=== PATIENT | female | born 1970 | race Caucasian/White ===

== ENCOUNTER 2019-06-11 10:15 | Outpatient (CLI) | payer OTHER, SELFPAY ==
[2019-06-11 10:50] LABS: Blood Urea Nitrogen 10 mg/dL (7-17); Carbon Dioxide 26 mmol/L (22-30); Chloride 106 mmol/L (98-107); Estimated Glomerular Filt Rate > 60; Glucose 96 mg/dL (65-105); Potassium 3.9 mmol/L (3.4-5.0); Sodium 138 mmol/L (137-145)
[2019-06-13 04:15] LABS: Ionized Calcium 5.1 mg/dL (4.8-5.6)
== END 2019-06-11 10:16 | disposition home or self-care (01) ==
PROVIDERS: PCP Internal Medicine; Visit Provider Internal Medicine
DX: R20.0 Anesthesia of skin (principal)
CPT/HCPCS: 36415; 80048; 82330

== ENCOUNTER 2019-06-22 11:47 | Outpatient (NON) | payer OTHER, SELFPAY ==
[2019-06-23 13:29] LABS: SARS-CoV-2 RNA PCR Negative
== END 2019-06-22 11:48 ==
PROVIDERS: PCP Internal Medicine; Visit Provider Internal Medicine
DX: R50.9 Fever, unspecified (principal); R68.89 Other general symptoms and signs; Z20.828 Contact with and (suspected) exposure to other viral communicable diseases
CPT/HCPCS: 87635; U0003

== ENCOUNTER 2019-06-25 11:19 | Outpatient (CLI) | payer OTHER, SELFPAY ==
--- NOTE | ~2019-06-25 | XR_ITS ---
XR chest 2V DATE: 06/25/2019 11:42 INDICATION: PA and lateral views TECHNIQUE: 05/25/2017 PA and lateral COMPARISON: 05/25/2017 PA and lateral views FINDINGS: Normal heart size. There is left upper lobe infiltrate involving primarily the anterior se gment. The lungs are otherwise clear. No pleural effusion or pulmonary vascular congestion or pneumothorax. Aortic arch calcification.. IMPRESSION: Anterior segment left upper lobe infiltrate Reviewed, dictated and finalized at location A.
== END 2019-06-25 11:20 | disposition home or self-care (01) ==
PROVIDERS: PCP Internal Medicine; Visit Provider Internal Medicine
DX: R07.9 Chest pain, unspecified (principal); R91.8 Other nonspecific abnormal finding of lung field
CPT/HCPCS: 71046

== ENCOUNTER 2019-07-03 11:37 | Outpatient (CLI) | payer OTHER, SELFPAY ==
--- NOTE | ~2019-07-03 | XR_ITS ---
XR chest 2V 07/03/2019 11:59 Indication: Recheck pneumonia. Procedure: 2 view chest Comparison: Comparison to multiple prior studies sequentially, with oldest reviewed study dated 05/25. Findings: There has been progression of left upper lobe pneumonia. No pleural effusion. Heart size no rmal. Right lung clear. No pneumothorax. No acute osseous abnormality. Impression: 1: Progression of left upper lobe pneumonia. Reviewed, dictated and finalized at location A. Impression: 1: Progression of left upper lobe pneumonia.
== END 2019-07-03 11:38 | disposition home or self-care (01) ==
PROVIDERS: PCP Internal Medicine; Visit Provider Internal Medicine
DX: J18.9 Pneumonia, unspecified organism (principal)
CPT/HCPCS: 71046

== ENCOUNTER 2019-07-13 09:52 | Outpatient (CLI) | payer OTHER, SELFPAY ==
--- NOTE | ~2019-07-13 | XR_ITS ---
XR chest 2V DATE: 07/13/2019 10:09 INDICATION: Chest pain under left breast TECHNIQUE: PA and lateral views COMPARISON: 07/03/2019 PA and lateral chest 06/25/2019 PA and lateral chest FINDINGS: There is increased left upper lobe anterior segment consolidation. This raises concern for possible left upper lobe malignancy with postobstructive infiltrate/consolidation. Consider CT thorax with intravenous contrast material for further evaluation. The remaining lung ram are clear. Normal heart size. Aortic arch calcification. No pleural effusion or pulmonary vascular congestion or pneumothorax. Included skeletal structures are unremarkable. Surgical clips overlie the lower cervical area. IMPRESSION: Persistent left upper lobe infiltrate/consolidation, increasing since 06/25/2019, raising concern for possible left upper lobe malignancy. Consider CT thorax with IV contrast material. Dr. Rivas telephoned the report and suggestion for CT thorax with IV contrast material to Dr. Cox on 07/13/2019 at 1032 hours. Reviewed, dictated and finalized at location A. IMPRESSION: Persistent left upper lobe infiltrate/consolidation, increasing sin ce 06/25/2019, raising concern for possible left upper lobe malignancy. Consider CT thorax with IV contrast material. Dr. Rivas telephoned the report and suggestion for CT thorax with IV contrast ma terial to Dr. Cox on 07/13/2019 at 1032 hours.
== END 2019-07-13 09:53 | disposition home or self-care (01) ==
PROVIDERS: PCP Internal Medicine; Visit Provider Internal Medicine
DX: J18.9 Pneumonia, unspecified organism (principal); R91.8 Other nonspecific abnormal finding of lung field
CPT/HCPCS: 71046

== ENCOUNTER 2019-07-21 08:10 | Outpatient (CLI) | payer OTHER, SELFPAY ==
--- NOTE | ~2019-07-21 | CT_ITS ---
EXAMINATION:CT chest wo con DATE: 07/21/2019 09:18 INDICATION: Pneumonia, unspecified. TECHNIQUE: Computed tomography (CT) of the chest was performed without intravenous contrast. Automate d exposure control and iterative reconstruction technique were employed. The dose-length product (DLP ) was 413.93 mGy-cm. COMPARISON: Chest 2 views 07/13/2019, 07/03/2019, 06/25/2019 FINDINGS: There is mild emphysema. There are airspace opacities with air bronchograms involving anter ior and apicoposterior segments of left upper lobe. There is an 11 mm nodule in superior lingula. No pleural effusion. There are changes of thyroidectomy. There is mediastinal and left hilar lymphadenop athy. For example, a prevascular node measures 14 x 24 mm. There is severe cervical spondylosis and m ild thoracic spondylosis. The heart size is normal. There are coronary artery calcifications. There i s a small pericardial effusion. There is a small sliding hiatal hernia. The adrenal glands are normal . IMPRESSION: 1. Disease in left lung upper lobe, at least predominantly pneumonia. Consider bronchoscopy or follow -up radiographs to exclude malignancy. 2. Mild mediastinal and left hilar lymphadenopathy. 3. Mild emphysema. 4. Small pericardial effusion. Reviewed, dictated and finalized at location E. IMPRESSION: 1. Disease in left lung upper lobe, at least predominantly pneumonia. Consider bronchoscopy or follow-up radiographs to exclude malignancy. 2. Mild mediastinal and left hilar lymphadenopathy. 3. Mild emphysema. 4. Small pericardial effusion.
== END 2019-07-21 08:11 | disposition home or self-care (01) ==
PROVIDERS: PCP Internal Medicine; Visit Provider Internal Medicine
DX: J18.9 Pneumonia, unspecified organism (principal); R59.0 Localized enlarged lymph nodes; J43.9 Emphysema, unspecified; I31.3 Pericardial effusion (noninflammatory)
CPT/HCPCS: 71250

== ENCOUNTER 2019-08-06 00:26 | Outpatient (CLI) | payer OTHER, SELFPAY ==
--- NOTE | 2019-08-06 10:00 | ECG_ITS ---
Measurements Intervals [place] Rate: 70 P: 46 MI: 183 QRS: 35 QRSD: 98 T: 69 QT: 381 QTc: 413 Interpretive Statements SINUS RHYTHM BORDERLINE R WAVE PROGRESSION, ANTERIOR LEADS BASELINE ARTIFACT- I, II, III, AVR, AVL, AVF, V1-V6 BORDERLINE ECG Electronically Signed On 08-06-2019 10:44:56 CDT by Lazaro BOYD
[2019-08-06 16:41] LABS: SARS-CoV-2 RNA PCR Negative
== END 2019-08-06 00:27 | disposition home or self-care (01) ==
LOC: ANHCOVIDDT 00:26
PROVIDERS: PCP Internal Medicine; Visit Provider Internal Medicine Critical Care Medicine
DX: Z01.812 Encounter for preprocedural laboratory examination (principal); Z20.828 Contact with and (suspected) exposure to other viral communicable diseases; R94.31 Abnormal electrocardiogram [ECG] [EKG]
CPT/HCPCS: 87635; 93005; C9803; U0003

== ENCOUNTER 2019-08-08 02:01 | Day surgery (SDC) | payer OTHER, SELFPAY ==
[2019-08-02 10:04] VITALS: BMI 36.7
[2019-08-08 11:53] VITALS: BMI 36.3
[2019-08-08] MEDS: LACTATED RINGERS 1,000 ML 150 ML IV CONT (12:21)
--- NOTE | 2019-08-08 12:32 | WPDANESEPPF ---
Anes - Initial Pre Proc Eval Procedure: Operation Date: 08/08/19 13:00 Proposed Procedures p Bronchoscopy - Naida Garza MD Date/Time: 08/08/19 12:32 Surgeon: Naida Garza MD Pre Op Diagnosis: Pneumonia Patient Data Age: 49 Gender: F Height: 5 ft 3 in Weight: 93 kg Allergies Allergy/AdvReac Type Severity Reaction Status Date / Time acetaminophen [From Percocet] AdvReac Intermediate feels like Verified 08/08/19 11:49 hair crawling oxycodone [From Percocet] AdvReac Intermediate feels like Verified 08/08/19 11:49 hair crawling Home Medications Medication Instructions Recorded Confirmed Type levothyroxine 150 mcg tablet 150 mcg PO DAILY 01/16/19 08/08/19 History acetaminophen 500 mg tablet 500 mg PO Q4-6H PRN tablet 01/25/19 08/08/19 History irbesartan 300 mg tablet See Rx Instructions PO BID #30 05/10/19 08/02/19 Rx tablet metoprolol tartrate 25 mg tablet 25 mg PO BID #90 tablet 05/29/19 08/08/19 Rx fenofibrate 160 mg PO HS 08/02/19 08/02/19 History Patient hx anesthesia problems: none Family hx anesthesia problems: none PMFSH Past Medical History Medical History (Updated 08/08/19 @ 12:27 by Chacho Read MD) Atrial fibrillation NSR since thyroidectomy performed Back problem Fatigue Headaches due to old head injury Hyperlipidemia Hypertension Obstructive sleep apnea Surgical History Surgical History (Updated 01/16/19 @ 13:10 by Stacy Walters, RT(R)) History of carpal tunnel release History of dilatation and curettage History of thyroidectomy History of tubal ligation Hx of tonsillectomy Family History Family History (Updated 07/15/17 @ 13:56 by DOCTOR UNKNOWN) Mother Hypertension Father Patient's father is in good health Sibling Patient's sister is in good health Patient's brother is in good health Other Depression Family history of Alzheimer's disease Family history of obesity Social History Social History Smoking status: Current every day smoker Alcohol intake: never Anes - Eval Final PreProcedure Day of Procedure 08/08/19 12:32 Patient weight: obese Heart: regular rate and rhythm Lungs: clear to auscultation Airway: Mallampati scale class III Neurological: alert and oriented Last oral intake: >/= 8 hours ASA classification: III Emergent: no Anesthetic plan: proceed Anesthesia type and monitoring: general LMA and standard monitoring Informed Consent: The patient's anesthetic plan and its attendant risks and benefits were discussed with the patient/family/POA. Questions were solicited and answers provided to the satisfaction of the patient/family/POA.
[2019-08-08 13:19] VITALS: BP 109/69; PULSE 71; RESP 24; TEMP 36.2; O2SAT 98
--- NOTE | 2019-08-08 13:23 | SUR.OPER ---
LEFT UPPER LOBE BRONCHIAL WASHINGS: 120ML WITH 25ML RETURN, 75ML POST BIOPSY WITH 2ML LIDOCAINE WITH EPINEPHRINE AND 23ML RETURN, 90ML WITH 29ML RETURN
[2019-08-08 13:29] VITALS: BP 86/53; PULSE 72; RESP 24; O2SAT 98
[2019-08-08] MEDS: LIDO 1%/EPINEPHRINE/PF 1:200,000 30 ML VIAL XX (13:29)
[2019-08-08 13:39] VITALS: BP 138/59; PULSE 72; RESP 24; O2SAT 98
--- NOTE | 2019-08-08 13:45 | SUR.PHASEII ---
1319 pt recieved into recovery with a simple mask at 10l o2, coughing on arrival , lungs sounds audible throughout
[2019-08-08 13:59] VITALS: BP 173/74; PULSE 68; RESP 24; O2SAT 98
[2019-08-08 14:09] VITALS: BP 161/73; PULSE 68; RESP 24; O2SAT 98
--- NOTE | 2019-08-08 14:19 | SUR.PHASEII ---
1319 pt recieved to recovery via stretcher on 10 l simple mask. lung sounds are audible with decreased sounds on left and few crackles audible. pt is coughing without expectoration of sputum. 1400 pt weaned on o2 to nc. pt is complaining of discomfort laying on stretcher, offered to get her up to recliner, pt tolerated getting up to recliner, feels much better, easier to breath and cough. 1410 dr. samson in to see patient and talked with spouse over speaker phone.
[2019-08-08 14:23] LABS: Source Bronchial Fluid Bronchial Lavage
[2019-08-08 14:24] LABS: Appearance Bronchial Fluid Cloudy; Color Bronchial Fluid Red
[2019-08-08 14:25] LABS: Lymphocytes Bronchial Fluid 1 %; Macrophages Bronchial Fluid 35; Monocytes Bronchial Fluid 8 %; Neutrophils Bronchial Fluid 4 %; Other Cells Bronchial Fluid 52 %
== END 2019-08-08 14:24 | disposition home or self-care (01) ==
PROVIDERS: PCP Internal Medicine; Visit Provider Internal Medicine Critical Care Medicine
PROC: 0BJ08ZZ Inspection of Tracheobronchial Tree, Via Natural or Artificial Opening Endoscopic (ICD-10-PCS; CPT 31622; principal; 2019-08-08 13:00)
DX: J18.9 Pneumonia, unspecified organism (principal); R06.02 Shortness of breath; I10 Essential (primary) hypertension; E78.5 Hyperlipidemia, unspecified; G47.33 Obstructive sleep apnea (adult) (pediatric); E89.0 Postprocedural hypothyroidism; E66.9 Obesity, unspecified; Z68.36 Body mass index [BMI] 36.0-36.9, adult; F17.210 Nicotine dependence, cigarettes, uncomplicated
CPT/HCPCS: 31625; 85999; 87015; 87102; 87116; 87206; 87252; 88160; 88305; J0330; J2370; J2704; J7120

== ENCOUNTER 2019-08-27 09:52 | Outpatient (CLI) | payer OTHER, SELFPAY ==
--- NOTE | ~2019-08-27 | XR_ITS ---
EXAMINATION: XR chest 2V EXAM DATE: 08/27/2019 10:10 INDICATION: Pneumonia. TECHNIQUE: Frontal and lateral projections of the chest obtained and reviewed. Comparison is made to prior examination from 07/13/2019, 07/03/2019, 06/25/2019. Correlation was made with chest CT 07/21/2019. FINDINGS: There is persistent right upper lobe anterior subsegmental airspace disease, similar appea erika as on 06/25/2019. This was larger on 07/02 and 07/12, has improved compared to the most recent exam last month. Differential diagnosis includes persistent infection, post infectious atelectasis, posto bstructive atelectasis from underlying cancer, cryptogenic organizing pneumonia. Given persistence, p atient should be evaluated for possibility of underlying cancer. Consider pulmonary consult for furth er evaluation. The lungs are otherwise clear. There are no pleural effusions. The cardiomediastinal silhouette is within normal limits. There is no pneumothorax suspected. The bones and soft tissues are unremarkab le. IMPRESSION: Left upper lobe anterior subsegmental airspace disease, similar sized to presenting exam in June but improved compared to July. Given chronicity, should consider possibility of underlying ca ncer; recommend pulmonary consult for further workup. Reviewed, dictated and finalized at location B. IMPRESSION: Left upper lobe anterior subsegmental airspace disease, similar siz ed to presenting exam in June but improved compared to July. Given chronicity, should consider possibility of underlying cancer; recommend pulmonary consult f or further workup.
== END 2019-08-27 09:53 | disposition home or self-care (01) ==
LOC: ANHIMG 09:53
PROVIDERS: PCP Internal Medicine; Visit Provider Internal Medicine
DX: J18.9 Pneumonia, unspecified organism (principal)
CPT/HCPCS: 71046

== ENCOUNTER 2019-09-04 09:41 | Outpatient (CLI) | payer OTHER, SELFPAY ==
--- NOTE | ~2019-09-04 | PE_ITS ---
EXAMINATION: PET skull to mid thigh DATE: 09/04/2019 11:58 INDICATION: Analyzed enlarged lymph nodes. Thyroid cancer. TECHNIQUE: Blood glucose level was 108 mg/dL. 7.635 mCi of 18-fluorodeoxyglucose (18-FDG) was adminis tered i.v. Low dose computed tomography (CT) images were acquired from the base of the brain to the p roximal thighs for attenuation correction and anatomic localization. Positron emission tomography (PE T) images were acquired in the same distribution beginning 63 minutes after injection. Images includi ng fused PET/CT images were reconstructed in axial, coronal, and sagittal planes. Automated exposure control technique was employed. The dose-length product was 1096.37mGy-cm. COMPARISON: None FINDINGS: Head/neck: There is symmetric increased activity in the oral cavity, palatine tonsils, parotid glands, submandi bular glands, laryngeal muscles and ocular muscles without CT correlate, likely physiologic. Thyroid is absent with a few surgical clips at the thyroid fossa consistent with prior thyroidectomy. No path ologically enlarged cervical lymphadenopathy or suspicious foci of increased FDG uptake in the visual ized head or neck. Chest: Mild emphysema at the right apex. There is increased FDG uptake associated with a region of consolida tion with air bronchograms in the anterior segment of the left upper lobe. The region of consolidatio n is significantly decreased in size consistent with resolving pneumonia. Respiratory motion but no o ther airspace disease in the remainder of the lungs. No pleural effusion. Borderline heart size. Smal l pericardial effusion. Interval decrease in size of a few mildly prominent prevascular lymph nodes t he largest now measuring 8-9 mm in maximal short axis diameter was previously this measured 12 mm in short axis diameter. No associated increased FDG uptake. No other pathologically enlarged thoracic ly mphadenopathy. Abdomen/pelvis/proximal thighs: Physiologic renal accumulation and excretion of FDG activity in the kidneys, bladder and along portio ns of ureters. Small calcifications at the bilateral renal stefania which could represent either atherosc lerotic calcific a nonobstructing renal calculi. Normal degree and heterogenous pattern of increased uptake throughout the liver without radiologic correlate or dominant FDG avid lesion. The gallbladder , pancreas, spleen and bilateral adrenal glands are normal. There is mild colonic diverticulosis with a sigmoid predominance. There is no adjacent inflammatory change to suggest diverticulitis. Mild up take scattered throughout the bowels without radiologic correlate, also likely physiologic. Normal ap pendix. No other abnormal foci of increased FDG uptake or pathologically enlarged lymphadenopathy in the abdomen, pelvis or proximal thighs. Musculoskeletal: Moderate disc height loss at 67 and L4-L5. Otherwise mild spondylosis. Mild posterior vertebral body height loss at L5. No suspicious lytic, blastic or FDG avid bone lesions. IMPRESSION: 1. Significant decrease in size of a region of consolidation with increased FDG uptake in the anterio r segment of the left upper lobe most likely resolving either infectious or inflammatory process. Rec ommend continued follow-up chest CT in 3 months. 2. Interval decrease in size of a few mildly prominent and likely reactive prevascular lymph nodes wh ich are without increased FDG uptake. 3. No pathologically enlarged lymphadenopathy or suspicious FDG avid lesions in the abdomen or pelvis . Reviewed, dictated and finalized at location A. IMPRESSION: 1. Significant decrease in size of a region of consolidation with increased FDG uptake in the anterior segment of the left upper lobe most likely resolving ei ther infectio
[2019-09-04 10:06] LABS: Glucose Point of Care 108 (65-105)
== END 2019-09-04 09:42 | disposition home or self-care (01) ==
PROVIDERS: PCP Internal Medicine; Visit Provider Internal Medicine Critical Care Medicine
DX: R59.1 Generalized enlarged lymph nodes (principal)
CPT/HCPCS: 78815; A9552

== ENCOUNTER 2019-09-24 10:31 | Outpatient (CLI) | payer OTHER, SELFPAY ==
[2019-09-24 11:37] LABS: Alanine Aminotransferase 18 U/L (4-35); Albumin Level 4.3 g/dL (3.5-5.1); Alkaline Phosphatase 89 U/L (38-126); Aspartate Amino Transferase 22 U/L (14-36); Bilirubin,Total 0.4 mg/dL (0.2-1.3); Blood Urea Nitrogen 11 mg/dL (7-17); Carbon Dioxide 21 mmol/L (22-30); Chloride 106 mmol/L (98-107); Cholesterol 249 mg/dL (0-200); Estimated Glomerular Filt Rate 58; Glucose 118 mg/dL (65-105); HDL Direct 34 mg/dL; Potassium 4.2 mmol/L (3.4-5.0); Sodium 138 mmol/L (137-145); Triglycerides 184 mg/dL (<150)
[2019-09-24 11:45] LABS: CRP 1.6 mg/dL (<1.0)
[2019-09-24 11:48] LABS: LDL Cholesterol Direct 171 mg/dL
[2019-09-27 07:20] LABS: ANA Cascade Screen Negative (Negative)
[2019-09-28 15:46] LABS: Procalcitonin <0.10 ng/mL (<0.10)
== END 2019-09-24 10:32 | disposition home or self-care (01) ==
PROVIDERS: Internal Medicine Critical Care Medicine; Visit Provider Internal Medicine
DX: R50.9 Fever, unspecified (principal); I10 Essential (primary) hypertension; Z79.899 Other long term (current) drug therapy; E78.5 Hyperlipidemia, unspecified
CPT/HCPCS: 36415; 80053; 80061; 84145; 86038; 86140

== ENCOUNTER 2019-11-06 08:52 | Outpatient (CLI) | payer OTHER, SELFPAY ==
[2019-11-06 09:19] LABS: Alanine Aminotransferase 12 U/L (4-35); Albumin Level 4.4 g/dL (3.5-5.1); Alkaline Phosphatase 79 U/L (38-126); Aspartate Amino Transferase 19 U/L (14-36); Bilirubin,Total 0.3 mg/dL (0.2-1.3); Cholesterol 173 mg/dL (0-200); HDL Direct 33 mg/dL; Triglycerides 202 mg/dL (<150)
[2019-11-06 09:30] LABS: LDL Cholesterol Direct 100 mg/dL
== END 2019-11-06 08:53 | disposition home or self-care (01) ==
PROVIDERS: Referring Provider Nurse Practitioner; Visit Provider Internal Medicine
DX: E78.5 Hyperlipidemia, unspecified (principal); Z79.899 Other long term (current) drug therapy; E03.9 Hypothyroidism, unspecified
CPT/HCPCS: 36415; 80061; 80076; 84443

== ENCOUNTER 2020-02-12 06:57 | Outpatient (NON) | payer OTHER, SELFPAY ==
[2020-02-13 14:22] LABS: SARS-CoV-2 RNA PCR Negative
== END 2020-02-12 06:58 ==
LOC: ANHCOVIDDT 07:13
PROVIDERS: Visit Provider Internal Medicine
DX: R68.89 Other general symptoms and signs (principal); Z20.828 Contact with and (suspected) exposure to other viral communicable diseases
CPT/HCPCS: 87635; C9803; U0003

== ENCOUNTER 2020-02-14 10:41 | Outpatient (CLI) | payer OTHER, SELFPAY ==
--- NOTE | ~2020-02-14 | XR_ITS ---
XR chest 2V DATE: 02/14/2020 10:57 INDICATION: Cough, shortness of breath. Recent history of pneumonia. TECHNIQUE: PA and lateral views COMPARISON: 08/26/2021 view chest FINDINGS: There is mild discoid atelectasis or scarring in the left mid-upper lung at site of prior i nfiltrate on 08/27/2019. The lungs are clear of consolidation. No pleural effusion or pulmonary vascul ar congestion or pneumothorax. Normal heart size. Aortic arch calcification. Surgical clips overlie the urinary lower mid cervical area IMPRESSION: Probable mild residual discoid scarring in the left mid to upper lung at site of former p neumonia Reviewed, dictated and finalized at location A. [employer] IMPRESSION: Probable mild residual discoid scarring in the left mid to upper rama ng at site of former pneumonia
== END 2020-02-14 10:42 | disposition home or self-care (01) ==
LOC: ANHIMG 10:45
PROVIDERS: Visit Provider Nurse Practitioner
DX: R05 Cough (principal); R06.02 Shortness of breath
CPT/HCPCS: 71046

== ENCOUNTER → 2020-05-19 06:58 | Outpatient (CLI) | payer OTHER, SELFPAY ==
[2020-05-19 21:05] LABS: SARS-CoV-2 RNA PCR Negative
== END ==
PROVIDERS: Visit Provider Internal Medicine Critical Care Medicine
DX: R68.89 Other general symptoms and signs (principal); Z20.822 Contact with and (suspected) exposure to COVID-19
CPT/HCPCS: C9803; U0003; U0005

== ENCOUNTER 2020-05-21 09:06 | Outpatient (CLI) | payer OTHER, SELFPAY ==
--- NOTE | 2020-06-04 09:36 | WPDSLEEPSTUD ---
Sleep Study Ordering Provider: RADHIKA Fuentes Interpreting Physician: Luis Perry MD Sleep Study Type: Split Polysomnogram Height: 1.6 m Weight: 97.522 kg Body Mass Index: 38.0 Neck Circumference (inches): 19 [place]: 12 Reason for Sleep Study Patient has an established diagnosis of obstructive sleep apnea and was using CPAP. However few years ago patient's CPAP machine was removed due to insurance purposes. Patient has significant symptomatology and needs reassessment of her sleep disorder and treatment. Sleep History Patient has loud disruptive snoring, witnessed apneas, daytime sleepiness and overall poor quality of sleep. [facility] Past Medical History Medical History Atrial fibrillation NSR since thyroidectomy performed Back problem Fatigue Headaches due to old head injury Hyperlipidemia Hypertension Obstructive sleep apnea Screen for colon cancer Screening for breast cancer Screening for osteoporosis Surgical History Surgical History History of carpal tunnel release History of dilatation and curettage History of thyroidectomy History of tubal ligation Hx of tonsillectomy Family History Family History Mother Hypertension Father Patient's father is in good health Sibling Patient's sister is in good health Patient's brother is in good health Other Depression Family history of Alzheimer's disease Family history of obesity Social History Social History Smoking status: Current every day smoker Alcohol intake: never Medications Home Medications Medication Instructions Recorded Confirmed Type acetaminophen 500 mg tablet 500 mg PO Q4-6H PRN tablet 01/25/19 05/05/20 History metoprolol tartrate 25 mg tablet 25 mg PO BID #90 tablet 09/13/19 05/05/20 Rx irbesartan 300 mg tablet See Rx Instructions PO BID #90 09/24/19 05/05/20 Rx tablet meclizine 12.5 mg tablet 12.5 mg PO TID PRN #90 tablet 11/06/19 05/05/20 Rx albuterol sulfate 90 mcg/actuation 2 inh INHALATION Q4H PRN #8.5 g 02/15/20 05/05/20 Rx aerosol inhaler atorvastatin 20 mg tablet 20 mg PO DAILY #30 tablet 02/15/20 05/05/20 Rx levothyroxine 175 mcg tablet 175 mcg PO DAILY #90 tablet 05/05/20 05/05/20 Rx Sleep Procedure Patient underwent overnight polysomnography using split night protocol. Sleep Architecture Diagnostic study - Total recording time 224 minutes, total sleep time 205 minutes, sleep efficiency 91.5%. Sleep latency 8 minutes, REM latency 103 minutes. Awake after sleep onset 10 minutes, stage N1 22.7%, N2 49.3%, N3 14.6%, stage R 13 0.4%. Supine sleep 7.3%, supine REM sleep 0%. Treatment study- Total recording time 230 minutes, total sleep time 214 minutes, sleep efficiency 93.1%. Sleep latency 10 minutes, REM latency 23 minutes. Awake after sleep onset 6 minutes, stage N1 7.6%, N2 23.1%, N3 16.8%, stage R 52.5%. Prolonged REM sleep with CPAP is indicative of improved sleep quality. Supine sleep 0%. Respiratory Analysis AASM criteria used. Diagnostic study- patient had 59 apneas, 29 obstructive and 18 central. Apnea index 17.3 . 218 hypopneas with index 63.8. AHI 81.1, RDI 85.8. REM index 111.3, non-REM index 76.4. Supine index 81.1 ,non supine index 77.7. Treatment study - 39 apneas, 22 obstructive and 6 central. Apnea index 10.9 . Fifteen hypopneas index 4.5. REM index 9.6, non-REM index 21.8. All events occurred in nonsupine position. Arousals Diagnostic study - total arousals 259 with index 69.4. Hypopnea arousals 148, apnea arousals 43, snores arousal 51, spontaneous arousals 15, limb movement arousals 2. Treatment study - total arousals 51 with index 13.3. Snores arousal 23, apnea arousals 11, spontaneous arousals 11, limb movement arousals 6.
[2020-06-04 10:12] VITALS: BMI 38.0
== END 2020-05-21 09:07 | disposition home or self-care (01) ==
LOC: ANHCSM 09:06
PROVIDERS: Visit Provider Nurse Practitioner
DX: G47.33 Obstructive sleep apnea (adult) (pediatric) (principal)
CPT/HCPCS: 95811

== ENCOUNTER 2020-06-15 15:53 | Emergency (ER) | payer OTHER, SELFPAY ==
[2020-06-15 15:58] VITALS: BP 208/70; PULSE 88; RESP 16; TEMP 37.6; O2SAT 100
--- NOTE | 2020-06-15 16:11 | ED.EYEPROB ---
HPI - Eye Problem General Chief complaint: Eye Problems Stated complaint: eye drainage Time Seen by Provider: 06/15/20 16:11 Source: patient and RN notes reviewed Mode of arrival: ambulatory Limitations: no limitations History of Present Illness HPI Narrative: 50-year-old female Left eye lid swelling. States that it feels like her eye is very dry. Yesterday and this morning had some discharge when she woke up. Denies any trauma to the eye. Denies any visual changes. No headaches. No nausea vomiting or diarrhea. No chest pain or abdominal pain. Related Data Allergies Allergy/AdvReac Type Severity Reaction Status Date / Time oxycodone [From Percocet] AdvReac Intermediate feels like Verified 06/15/20 16:11 hair crawling Review of Systems Review of Systems: Narrative: CONSTITUTIONAL: Denies fever, chills, or sweats. EYES: Denies visual changes or redness. Reports discharge/crusting this morning and yesterday morning. ENT: Denies rhinorrhea, congestion, sore throat, or otalgia. CARDIOVASCULAR: Denies chest pain, palpitations, or edema. RESPIRATORY: Denies cough or dyspnea. GASTROINTESTINAL: Denies abdominal pain, nausea, vomiting, or diarrhea. MUSCULOSKELETAL: Denies back pain, joint pain, or myalgia. NEUROLOGIC: Denies headache, numbness, or weakness. PSYCHIATRIC: Denies anxiety or depression. All other systems reviewed are negative, except as documented in HPI. [facility] Past Medical History Medical History Atrial fibrillation NSR since thyroidectomy performed Back problem Fatigue Headaches due to old head injury Hyperlipidemia Hypertension Obstructive sleep apnea Screen for colon cancer Screening for breast cancer Screening for osteoporosis Surgical History Surgical History History of carpal tunnel release History of dilatation and curettage History of thyroidectomy History of tubal ligation Hx of tonsillectomy Family History Family History Mother Hypertension Father Patient's father is in good health Sibling Patient's sister is in good health Patient's brother is in good health Other Depression Family history of Alzheimer's disease Family history of obesity Social History Social History (Reviewed 06/15/20 @ 19:31 by Mayelin Vazquez Smoking status: Current every day smoker Alcohol intake: never Comments At the time of my signature, I reviewed and agree with the nursing past medical, surgical, social, and family history. There is no relevant family history pertinent to the patient complaint. Exam Narrative: Exam Narrative: GENERAL: This is a well-nourished, well-developed patient, in no apparent distress. Obese HEAD: normocephalic, atraumatic. EYES: PERRL. Sclera clear/white. Vision is grossly intact. Left eye conjunctive upper lower lids injected with increased redness. Eyes tearing. Right eye normal EARS: External ears normal, auditory canals clear and without drainage, TMs normal without perforation. Hearing grossly intact. NOSE: External nose normal with no obvious nasal discharge, nares without redness, no rhinorrhea. THROAT: Mucous membranes moist, posterior pharynx clear. NECK: Neck supple, non-tender without lymphadenopathy, masses or thyromegaly. CARDIOVASCULAR: Regular rate and rhythm without murmurs, gallops, or rubs. RESPIRATORY: Clear to auscultation. Breath sounds equal bilaterally. No wheezes, rales, or rhonchi. NEURO: awake, alert, and oriented to person, place and time. There were no obvious focal neurologic abnormalities. EXTREMITIES: No joint tenderness, effusion, or edema noted. BACK: Nontender without deformity. Course Course Emergency Course: Discussion with patient on blood pressure control. Patient states today was the only day that she did not take her blood pressure medication. Normally takes it on
[2020-06-15 16:22] VITALS: BP 206/84
== END 2020-06-15 16:38 | disposition home or self-care (01) ==
PROVIDERS: Emergency Provider Nurse Practitioner; PCP Internal Medicine
DX: H10.32 Unspecified acute conjunctivitis, left eye (principal); F17.200 Nicotine dependence, unspecified, uncomplicated; E78.5 Hyperlipidemia, unspecified; I10 Essential (primary) hypertension; G47.33 Obstructive sleep apnea (adult) (pediatric); E89.0 Postprocedural hypothyroidism
CPT/HCPCS: 99213; G0463

== ENCOUNTER 2020-11-05 10:21 | Outpatient (CLI) | payer OTHER, SELFPAY ==
--- NOTE | ~2020-11-05 | CT_ITS ---
EXAMINATION: CT brain wo con EXAM DATE: 11/05/2020 10:52 INDICATION: R29.898 - Other symptoms and signs involving the musculos... Recent shoulder surgery, lef t arm hemiparesis. Headaches. TECHNIQUE: Spiral CT of the head was performed without contrast. Axial, coronal and sagittal images were reviewed. The dose-length product (DLP) for this examination was 605.33 mGy-cm. The exposure w as tailored according to patient size, and iterative reconstruction (ASIR) was used as additional dos e reduction technique. There is no prior study for comparison. FINDINGS: Low-lying cerebellar tonsils not meeting criteria for Chiari I malformation. There is no ac [place] intraparenchymal hemorrhage. No evidence of intraparenchymal brain mass lesion. No evidence of acute infarction. There is no mass effect or midline shift. The ventricles are normal in size. The re are no extra-axial collections. There are no acute calvarial fractures. The orbits are unremarkab le. Soft tissue is unremarkable. The visualized sinuses and mastoid air cells are well aerated. IMPRESSION: 1. No acute intracranial findings. 2. Low-lying cerebellar tonsils. Reviewed, dictated and finalized at location B.
== END 2020-11-05 10:22 | disposition home or self-care (01) ==
PROVIDERS: PCP Internal Medicine; Visit Provider Internal Medicine
DX: R29.898 Other symptoms and signs involving the musculoskeletal system (principal); Q04.8 Other specified congenital malformations of brain
CPT/HCPCS: 70450

== ENCOUNTER 2022-01-19 06:59 | Emergency (ER) | payer BC, SELFPAY ==
[2022-01-19] VITALS (22 sets, daily range): BP systolic 142–166; BP diastolic 46–71; PULSE 62–88; RESP 10–23; TEMP 36.4; O2SAT 93–100
--- NOTE | ~2022-01-19 | US_ITS ---
EXAMINATION: US right upper quadrant DATE: 01/19/2022 08:09 INDICATION: Abdominal pain. TECHNIQUE: Multiple grayscale and Doppler ultrasound images of the abdomen were obtained. COMPARISON: PET CT 09/04/2019 FINDINGS: The visualized portions of the head and body of the pancreas are normal. There is diffuse h epatic steatosis. No liver surface nodularity. There is normal flow in main portal vein. The gallblad tri is normal in size. No gallstones or gallbladder wall thickening. There was no sonographic Hsu sign. The common duct is normal and measures 3 mm. IMPRESSION: 1. Diffuse hepatic steatosis. Reviewed, dictated and finalized at location A. ITAL UNIT CLERK
--- NOTE | ~2022-01-19 | XR_ITS ---
EXAMINATION: XR chest 2V DATE: 01/19/2022 08:06 INDICATION: Chest pain. TECHNIQUE: Frontal and lateral views of the chest were obtained. COMPARISON: Chest 2 views 02/14/2020 FINDINGS: The chest demonstrates clear lungs without pneumonia, pleural effusion, or pneumothorax. Th e heart size is normal. IMPRESSION: 1. No acute cardiopulmonary disease. Reviewed, dictated and finalized at location A. H AND TRUING MACHINE OPERATOR
--- NOTE | 2022-01-19 07:07 | ECG_ITS ---
Measurements Intervals [place] Rate: 76 P: 59 MA: 173 QRS: 19 QRSD: 96 T: 65 QT: 374 QTc: 421 Interpretive Statements SINUS RHYTHM INCOMPLETE RIGHT BUNDLE BRANCH BLOCK DELAYED PRECORDIAL R/S TRANSITION BORDERLINE ECG COMPARED TO ECG 08/06/2019 10:53:16 INCOMPLETE RIGHT BUNDLE-BRANCH BLOCK NOW PRESENT Electronically Signed On 01-19-2022 7:54:24 [employer] COUN[employer] by Lazaro Rivers D.O.
[2022-01-19] MEDS: SODIUM CHLORIDE 0.9% IV 1,000 ML 999 ML IV CONT (07:37)
[2022-01-19] MEDS: ONDANSETRON INJ 4 MG/2 ML VIAL IV PUSH (07:37)
[2022-01-19] MEDS: MORPHINE SULFATE (*CRX) 4 MG/ML INJ IV PUSH (07:38)
[2022-01-19 07:45] LABS: Basophils Percent Auto 0.6 % (0.2-1.2); Eosinophils Absolute Auto 0.1 K/mm3 (0-0.3); Eosinophils Percent Auto 1.7 % (0-4.4); Hematocrit 36.8 % (37.0-47.0); Hemoglobin 12.4 g/dL (12.0-15.0); Immature Granulocyte Absolute 0.03 K/mm3 (0.00-0.031); Immature Granulocyte Percent A 0.6 % (0-0.5); Lymphocytes Absolute Auto 1.92 K/mm3 (0.9-3.2); Mean Corpuscular HGB Conc 33.7 g/dl (32-36); Mean Corpuscular Hemoglobin 29.7 pg (26-34); Mean Corpuscular Volume 88.2 fl (80-100); Mean Platelet Volume 9.7 fl (7.4-10.4); Monocytes Absolute Auto 0.4 K/mm3 (0.1-0.6); Monocytes Percent Auto 7.3 % (2.6-8.5); Neutrophils Absolute Auto 2.9 K/mm3 (1.3-6.7); Neutrophils Percent Auto 53.8 % (45.5-73.1); Platelet Count Result 224 k/mm3 (150-375); Red Blood Count 4.17 M/mm3 (4.2-5.4); Red Cell Distribution Width 14.5 % (11.5-14.5); White Blood Count 5.3 K/mm3 (4.5-10.0)
[2022-01-19 07:52] LABS: Prothrombin Time 13.2 Seconds (11.1-14.7)
[2022-01-19 07:53] LABS: Partial Thromboplastin Time 28.5 SECONDS (22.3-36.8)
[2022-01-19 07:54] LABS: Alanine Aminotransferase 26 U/L (6-35); Albumin Level 4.2 g/dL (3.5-5.1); Alkaline Phosphatase 80 U/L (38-126); Anion Gap 13 mmol/L (8-16); Aspartate Amino Transferase 26 U/L (14-36); Bilirubin,Total 0.4 mg/dL (0.2-1.3); Blood Urea Nitrogen 12 mg/dL (7-17); Calcium 9.2 mg/dL (8.4-10.2); Carbon Dioxide 22 mmol/L (22-30); Chloride 109 mmol/L (98-107); Estimated CRCL calculation 73 ml/min; Estimated Glomerular Filt Rate > 60; Glucose 106 mg/dL (65-110); Lipase 82 U/L (23-300); Potassium 3.5 mmol/L (3.4-5.0); Sodium 144 mmol/L (137-145)
[2022-01-19 08:06] LABS: Troponin I 0.013 ng/mL (0.000-0.034)
[2022-01-19 10:16] LABS: Influenza A QL RT-PCR Negative (Negative); Influenza B QL RT-PCR Negative (Negative); SARS-CoV-2 RNA PCR Negative
[2022-01-19 10:59] LABS: Troponin I 0.017 ng/mL (0.000-0.034)
--- NOTE | 2022-01-19 11:07 | ED.CHESTPAIN ---
HPI - Chest Pain General Chief Complaint: Chest Pain Stated Complaint: chest pain Time Seen by Provider: 01/19/22 07:03 History of Present Illness HPI narrative: Patient is a 51-year-old female who presents ER with reports of chest pain. Reports she had chest pain all day yesterday and then when she got off work it went away. Today when she was going to work chest pain returned. Its in her epigastrium and right chest. No radiation. Aching. Associated with some nausea. No diaphoresis or shortness of breath. Not associated with eating or drinking. Cannot find alleviating factors. Patient also reports she has had headache for couple of days. No fevers or chills or sweats. Patient reports history of hypertension hyperlipidemia but no GA in the past. Related Data Home Medications Medication Instructions Recorded Confirmed clopidogrel 75 mg tablet 75 mg PO BID 11/05/20 11/05/20 hydrocodone 5 mg-acetaminophen 325 1 tablet PO PRN 11/05/20 11/05/20 mg tablet Allergies Allergy/AdvReac Type Severity Reaction Status Date / Time oxycodone [From Percocet] AdvReac Intermediate feels like Verified 01/19/22 07:16 hair crawling Review of Systems Review of Systems: All systems reviewed & are unremarkable except as noted in HPI and below Constitutional: Constitutional: Denies chills, Denies fatigue and Denies fever(s) ENT: Denies nasal congestion and Denies sore throat Cardiovascular: Cardiovascular: Reports chest pain, Denies rapid heart rate and Denies radiating jaw, neck or arm pain Respiratory: Respiratory: Denies cough, Denies dyspnea and Denies wheezing Gastrointestinal: Gastrointestinal: Reports abdominal pain, Denies nausea and Denies vomiting Neurologic: Denies syncope, Reports headache(s) and Denies focal weakness [facility] Past Medical History Medical History (Updated 01/19/22 @ 12:38 by Tate Harp MD) Atrial fibrillation NSR since thyroidectomy performed Back problem Fatigue Headaches due to old head injury Hyperlipidemia Hypertension Obstructive sleep apnea Screen for colon cancer Screening for breast cancer Screening for osteoporosis Surgical History Surgical History History of carpal tunnel release History of dilatation and curettage History of thyroidectomy History of tubal ligation Hx of tonsillectomy Family History Family History Mother Hypertension Father Patient's father is in good health Sibling Patient's sister is in good health Patient's brother is in good health Other Depression Family history of Alzheimer's disease Family history of obesity Social History Social History (Updated 11/05/20 @ 08:28 by Sameera Dolan CNA) Smoking status: Current every day smoker Tobacco type: cigarettes Second hand tobacco smoke exposure: Yes Alcohol intake: never Substance use: never Exam Narrative: GENERAL: Well-appearing, well-nourished, and in no acute distress. HEAD: Normocephalic, atraumatic. EYES: PERRL and EOMI. ENT: Mucous membranes moist. CHEST: Clear to auscultation. No respiratory distress. HEART: Regular rate and rhythm. Normal peripheral pulses. ABDOMEN: Soft, mild epigastric and right upper quadrant tenderness, nondistended. EXTREMITIES: Normal range of motion. No edema. SKIN: Warm, dry, no rash. NEURO: Alert and oriented x3. PSYCH: Normal mood and affect. Course Reevaluation(s) Reevaluation #1: Discussed med list and patient takes Plavix. She reports she had a vascular surgery to stent her arm due to narrowing. She said at that time she ended up having a heart injury related to the procedure and then had a heart attack. She has never had a cardiac catheterization. Patient's chest discomfort is gone at this time however troponins trended up. We will contact cardiology. Date: 01/19/22 Time: 11:35 Reevaluation #2:
== END 2022-01-19 13:02 | disposition home or self-care (01) ==
PROVIDERS: Emergency Provider Emergency Medicine; PCP Physician Assistant
DX: R07.9 Chest pain, unspecified (principal); R10.13 Epigastric pain; Z20.822 Contact with and (suspected) exposure to COVID-19; I48.91 Unspecified atrial fibrillation; I10 Essential (primary) hypertension; E89.0 Postprocedural hypothyroidism; E78.5 Hyperlipidemia, unspecified; G47.33 Obstructive sleep apnea (adult) (pediatric); F17.210 Nicotine dependence, cigarettes, uncomplicated; Z79.02 Long term (current) use of antithrombotics/antiplatelets; K76.0 Fatty (change of) liver, not elsewhere classified; I45.10 Unspecified right bundle-branch block
CPT/HCPCS: 36415; 71046; 76705; 80053; 83690; 84484; 85025; 85610; 85730; 87636; 93005; 96361; 96374; 96375; 99284; J2270; J2405; J7030

== ENCOUNTER 2024-04-23 11:41 | Emergency (ER) | payer BC, SELFPAY ==
[2024-04-23 11:50] VITALS: BP 172/62; PULSE 74; RESP 20; TEMP 36.3; O2SAT 98
--- NOTE | 2024-04-23 13:18 | ED_ITS ---
HPI - URI/Sore Throat General Chief Complaint: Ear Stated Complaint: Cough/Right Ear Problem Source: patient, RN notes reviewed and old records reviewed Mode of arrival: ambulatory Limitations: no limitations History of Present Illness HPI Narrative: 54-year-old female who presents to [facility] with complaints of 2 week duration of cough with some congestion and she has had 3-4 days of right ear pain, headache, sinus pressure. Patient reports that she is working on quitting smoking is down to 3 cigarettes per day. Patient reports that she has been taking Mucinex and also some NyQuil for her symptoms MD elicited complaint: cough, rhinorrhea, nasal congestion and other (Right ear pain) Onset (ago): week(s) (Two weeks cold symptoms 3-4 days right ear pain) Severity: moderate Able to tolerate fluids by mouth: Yes Treatments prior to arrival: other (Mucinex and NyQuil) Related Data Home Medications ?Medication ?Instructions ?Recorded ?Confirmed ?Last Taken ?Type albuterol sulfate 90 mcg/actuation inhalation 04/23/24 Unknown History aerosol inhaler hydrochlorothiazide 25 mg tablet mg 04/23/24 Unknown History labetalol 100 mg tablet mg 04/23/24 Unknown History varenicline tartrate 1 mg tablet mg 04/23/24 Unknown History Allergies Allergy/AdvReac Type Severity Reaction Status Date / Time oxycodone (From Percocet) AdvReac Intermediate feels like Verified 04/23/24 11:58 hair crawling Review of Systems Review of Systems: CONSTITUTIONAL: Reports malaise, no chills, sweats, or fever. EYES: Denies visual changes, redness, or discharge. ENT: Reports rhinorrhea, congestion, sinus pain, right otalgia and no sore throat. CARDIOVASCULAR: Denies chest pain, palpitations, or edema. RESPIRATORY: Reports cough.? Denies dyspnea. GASTROINTESTINAL: Denies abdominal pain, nausea, vomiting, diarrhea SKIN: Denies rash or itching. MUSCULOSKELETAL: Denies myalgia. NEUROLOGIC: REports headache. All systems reviewed & are unremarkable except as noted in HPI and below PMFSH Past Medical History Medical History Screen for colon cancer Screening for osteoporosis Screening for breast cancer Hyperlipidemia Hypertension Atrial fibrillation NSR since thyroidectomy performed Obstructive sleep apnea Back problem Headaches due to old head injury Fatigue Surgical History Surgical History History of thyroidectomy History of tubal ligation History of dilatation and curettage History of carpal tunnel release Hx of tonsillectomy Family History Family History Mother Hypertension Father Patient's father is in good health Sibling Patient's sister is in good health Patient's brother is in good health Other Depression Family history of Alzheimer's disease Family history of obesity Social History Social History (Updated 04/25/24 @ 15:48 by Quyen Weiss NP) Smoking packs per day: 1 Smoking cigarettes per day: 20.0 Years smoked: 25 Smoking pack-years: 25.00 Smoking status: Current every day smoker Tobacco type: cigarettes Second hand tobacco smoke exposure: Yes Additional smoking assessment comments: trying to quit down to 3 per day Alcohol intake: never Substance use: never Living arrangements: with family Gender identity (if verbalized by the patient): Female Comments At time of signature, agree with nursing past medical, surgical, social and family history. There is no relevant family history pertinent to the presenting complaint Exam Narrative: GENERAL: Well-appearing, well-nourished, and in no acute distress. HEAD: Normocephalic EYES: PERRLA, conjunctivae clear ENT: Nares clear, turbinates edematous and erythematous, clear discharge, sinus pressure and headache, Mucous membranes moist.Right TM red, Left TM pearly garcia with dull light reflex ; no tragal tenderness. Oropharynx erythematous without lesions. Tonsils not present and throat without exudate, no drooling, no hoarseness, no trismus, uvula midline.post nasal drainage NECK: Supple. No lymphadenopathy CHEST: Clear to auscultation, breath sounds equal. No wheezing, rhonchi, rales, or stridor. No respiratory distress, speaks in full sentences. HEART: Regular rate and rhythm. No murmur heard. SKIN: Warm, dry, no rash. NEURO: Alert and oriented x3. PSYCH: Normal mood and affect Course Course Emergency Course: Patient is aware of diagnosis, understands and agrees to treatment plan.? Anticipatory guidance given.? Patient agrees to follow-up as directed and is aware of reasons to seek care at the emergency department. Portions of this record may have been created with voice recognition software Level of Care: Express Care Visit Vital Signs Vital signs: Vital Signs Temperature 36.3 C L 04/23/24 11:50 Pulse Rate 74 04/23/24 11:50 Respiratory Rate 20 04/23/24 11:50 Blood Pressure 172/62 H 04/23/24 11:50 Pulse Oximetry 98 04/23/24 11:50 Oxygen Delivery Room Air 04/23/24 11:50 Temperature 36.3 C L 04/23/24 11:50 Pulse Rate 74 04/23/24 11:50 Respiratory Rate 20 04/23/24 11:50 Blood Pressure 172/62 H 04/23/24 11:50 Pulse Oximetry 98 04/23/24 11:50 Oxygen Delivery Room Air 04/23/24 11:50 Reviewed MDM - URI/Sore Throat MDM Narrative Medical decision making narrative: Differential diagnosis considered: Mahmood virus, strep pharyngitis, allergic rhinitis, upper respiratory tract infection, sinusitis, rhinosinusitis, nasopharyngitis. viral pharyngitis, otitis media, otitis externa, pneumonia, bronchitis, viral cough syndrome, viral syndrome, and influenza.? Exam findings show no acute concerns or changes; patient is non-toxic appearing and is in no distress.? Patient is appropriate for outpatient treatment and follow-up. Differential Diagnosis Differential diagnosis: Likely upper respiratory infection, otitis media, viral infection, influenza and other (COVID avute cough) Medical Records Attestation: I reviewed the patient's medical records. Lab Data Attestation: I reviewed the patient's lab results. Lab results narrative: Influenza A negative, Influenza B negative, COVID antigen negative Labs: Lab Results 04/23/24 Range/Units 11:56 POC Influenza A Ag Negative (Negative) POC Influenza B Ag Negative (Negative) POC SARS CoV-2 Ag Negative (Negative) reviewed Critical Care Time Critical Care Time Critical Care Time: No Discharge Plan Discharge Clinical Impression: Upper respiratory infection Qualifiers: URI type: unspecified URI Qualified Code(s): J06.9 - Acute upper respiratory infection, unspecified Otitis media, right Qualifiers: Otitis media type: serous Chronicity: acute Recurrence: not specified as recurrent Qualified Code(s): H65.01 - Acute serous otitis media, right ear Patient Disposition: Home, Self-Care Condition: Stable Instructions: Antibiotic Form, Ear Infection (GEN), Upper Respiratory Infection (ED), Acute Cough (ED) Additional Instructions: Increase fluids especially juices and water [id number] cough and cold medicine of your choice for your symptoms Continue Mucinex daily picture your drinking plenty of water with this medication Continue your inhaler/nebulizer as directed Steroids as directed--take with food heat to the face 20-30 minutes 4-6 times a day for pain Salt water gargles, throat lozenges or throat sprays as desired Antibiotic as directed--finished the medication Patient Language: Yoruba Prescriptions: New prednisone 20 mg tablet 20 mg PO BID Qty: 10 0RF Rx Instructions: take with food azithromycin 500 mg tablet 500 mg PO DAILY 5 Days Qty: 5 0RF No Action hydrochlorothiazide 25 mg tablet albuterol sulfate 90 mcg/actuation HFA aerosol inhaler INHALATION varenicline tartrate 1 mg tablet labetalol 100 mg tablet levothyroxine 175 mcg tablet 175 mcg PO DAILY Qty: 90 1RF pantoprazole 20 mg tablet,delayed release (DR/EC) 20 mg PO QHS Qty: 20 0RF atorvastatin 20 mg tablet See Rx Instructions .ROUTE .COMPLEX Qty: 30 5RF Dose Instruction: Take 1 tablet by mouth once daily Rx Instructions: Take 1 tablet by mouth once daily irbesartan 300 mg tablet See Rx Instructions .ROUTE .COMPLEX Qty: 90 0RF Dose Instruction: Take 1/2 (one-half) tablet by mouth twice daily Rx Instructions: Take 1/2 (one-half) tablet by mouth twice daily Follow-up/Referrals: Jamari,CJ Catalan [Primary Care Provider] - Time of Disposition: 13:25 Quality Jorje Coma Scale Eyes: Open Verbal: Oriented and Alert Motor: Follows Commands Jorje Coma Total Score: 15
[2024-04-23 13:37] LABS: EDCOVIDSCREEN Negative (Negative); EDINFLUASCREEN Negative (Negative); EDINFLUBSCREEN Negative (Negative)
--- OUTSIDE RECORDS SUMMARY | 2024-04-23 14:31 | XMS_ITS | Encounter Summary ---
Author Organization [facility] Address [address] [place] [address] Phone Care Team Providers Care Metal Machine Setter Name Role Phone Alayna Kauffman PAC Primary Care Pro vider Rajesh Parsons MD Unavailable Mayelin Werner CLINICAL GENETICIST, MANNEQUIN MOUNTER Unavailable [phone]- [phone] Reason for Visit * Reason Comments Medication Refill Encounter Details Date Type Department Care Team (Late st Contact Info) Description 06/25/2023 Refill [facility] - Internal Medicine - [place] [address] [place] [address] Alayna Kauffman, PAC [address] [place] [address] Medication Refill Social History Tobacco Use Types Packs/Day Years Used Date Smoking Tobacco: Every Day Cigarettes Smokeless Tobacco: Never Comments:Less than a pack a day Alcohol Use Standard Drinks/Week Comments Not Currently 0 (1 standard drink = 0.6 oz pur e alcohol) PHQ-2 Answer Date Recorded Total Score - Questions 1-9 0 05/2021 Comments No Sex and Gender Information Value Date Recorded Sex Assigned at Not on file Legal Sex Female 11:52 PM CDT Gender Identity Not on file Sexual Orientation Not on file documented as of this encounter Miscellaneous Notes * Telephone Encounter - Mayelin Conn RN - 06/27/2023 10:05 AM CDT Medication failed the protocol, provider to review and approve the medication order if appropriate. Requested Prescriptions Pending Prescriptions Disp Refills irbesartan (AVAPRO) 300 MG Tablet [Pharmacy Med Name: Irbesartan 300 MG Oral Tablet] 90 Tablet 0 Sig: Take 1 tablet by mouth once daily ARB Protocol Failed - 06/25/2023 11:01 AM Failed - Serum potassium on record in past 12 months POTASSIUM Date Value Ref Range Status 01/20/2022 4.0 3.5 - 5.1 mmol/L Final Failed - Visit with relevant provider in past year or upcoming 90 days Recent Visits No visits were found meeting these conditions. Showing recent visits within past 365 days and meeting all other requirements Future Appointments No visits were found meeting these conditions. Showing future appointments within next 90 days and meeting all other requirements Failed - GFR on record in past 12 months GFR, EST. NONAFRICAN Date Value Ref Range Status 01/20/2022 >60 >=60 Final Passed - BP on record in the past year Clinician-entered: BP Readings from Last 3 Encounters: 02/23/23 146/68 12/04/22 184/67 01/20/22 148/58 Patient-entered: No data recorded Passed - No positive test in the past 12 months or most recent test was negative Passed - No active on record documented in this encounter Plan of Treatment Upcoming Encounters Date Type Department Care Team (Late st Contact Info) Description 06/13/2024 8:15 AM CDT Office Visit [facility] - Internal Medicine - [place] [address] [place] [id number] Alayna Kauffman, [facility] [address] [place] [address] 06/26/2024 11:30 AM CDT Office Visit [facility] - Cardiology - [place] [address] [place] [address] Mayelin Wang APRN, MANNEQUIN MOUNTER [address] [facility], [address] [place] [address] documented as of this encounter Visit Diagnoses Not on filedocumented in this encounter Additional Health Concerns Assessment Noted Time PHQ-9 Depression Total Score: 4 11/07/19 21 10:00 AM CDT documented as of this encounter Care Teams Metal Machine Setter Relationship Specialty Start Date End Date Alayna Kauffman PAC [address] [place] [address] PCP - General Physician Auction Block Clerk 11/06/20 Rajesh Parsons MD [address] [place] [address] Consulting Physician Cardiovascular Disease - Cardiology 03/04/22 02/12/24 Mayelin Wang APRN, MANNEQUIN MOUNTER [address] [place] [facility], [address] [place] [address] Nurse Practitioner Cardiology 11/04/23 documented as of this encounter
--- OUTSIDE RECORDS SUMMARY | 2024-04-23 14:31 | XMS_ITS | Encounter Summary ---
Author Organization [facility] Address [address] [address] Phone Care Team Providers Care Product Safety Compliance Leader Name Role Phone Alayna Kauffman PAC Primary Care Pro vider Rajesh Parsons MD Unavailable Mayelin Werner CUSTOMER SERVICE RECEPTIONIST, OPTICAL INSTRUMENT ASSEMBLER Unavailable [phone]- [phone] Reason for Visit * Reason Comments Medication Refill Encounter Details Date Type Department Care Team (Late st Contact Info) Description 05/02/2022 Refill [facility] - Internal Medicine - [place] [address] [place] [address] Alayna Kauffman, PAC [address] [place] [address] Medication Refill Social History Tobacco Use Types Packs/Day Years Used Date Smoking Tobacco: Every Day Cigarettes Smokeless Tobacco: Never Alcohol Use Standard Drinks/Week Comments Not Currently [...] Telephone Encounter - Mayelin Conn RN - 05/03/2022 9:23 AM CST Medicate warning, requires approval by provider Per nursing clinical judgement, provider to review and approve the medication(s) order(s) if appropriate. Requested Prescriptions Pending Prescriptions Disp Refills atorvastatin (LIPITOR) 40 MG Tablet [Pharmacy Med Name: Atorvastatin Calcium 40 MG Oral Tablet] 30 Tablet 0 Sig: Take 1 tablet by mouth once daily Hmg CoA Reductase Inhibitors Protocol Passed - 05/02/2022 4:48 PM Passed - No positive test in the past 12 months or most recent test was negative Passed - Visit with relevant provider in past 12 months or upcoming 90 days Recent Visits Date Type Provider Dept 01/20/22 Office Visit Alayna Kauffman, PAC [facility] [place] 12/15/21 Office Visit Alayna Kauffman, PAC [facility] [place] 08/10/21 Office Visit Alayna Kauffman, PAC [facility] [place] 06/08/21 Office Visit Alayna Kauffman, PAC [facility] [place] Showing recent visits within past 365 days and meeting all other requirements Future Appointments Date Type Provider Dept 06/16/22 Appointment Alayna Kauffman PAC [facility] [place] Showing future appointments within next 90 days and meeting all other requirements Passed - No active on record Passed - Lipid panel in past 12 months LDL Date Value Ref Range Status 01/20/2022 71 5 - 130 mg/dL Final HDL CHOLESTEROL Date Value Ref Range Status 01/20/2022 31.4 (L) >40 mg/dL Final CHOLESTEROL Date Value Ref Range Status 01/20/2022 153 <=200 mg/dL Final TRIGLYCERIDES Date Value Ref Range Status 01/20/2022 254 (H) <150 mg/dL Final VLDL Date Value Ref Range Status 01/20/2022 51 5 - 55 mg/dL Final CHOL/HDL RATIO Date Value Ref Range Status 01/20/2022 4.9 (H) 0.0 - 4.4 Final NON-HDL CHOLESTEROL Date Value Ref Range Status 01/20/2022 121.6 <130 mg/dL Final omeprazole (PriLOSEC) 40 MG CAPSULE DELAYED RELEASE [Pharmacy Med Name: Omeprazole 40 MG Oral Capsule Delayed Release] 30 Capsule 0 Sig: Take 1 capsule by mouth once daily Proton Pump Inhibitors Protocol Passed - 05/02/2022 4:48 PM Passed - No positive test in the past 12 months or most recent test was negative Passed - Visit with relevant provider in past 12 months or upcoming 90 days Recent Visits Date Type Provider Dept 01/20/22 Office Visit Alayna Kauffman, PAC [facility] [place] 12/15/21 Office Visit Alayna Kauffman, PAC [facility] [place] 08/10/21 Office Visit Alayna Kauffman, PAC [facility] [place] 06/08/21 Office Visit Alayna Kauffman, PAC [facility] [place] Showing recent visits within past 365 days and meeting all other requirements Future Appointments Date Type Provider Dept 06/16/22 Appointment Alayna Kauffman PAC [facility] [place] Showing future appointments within next 90 days and meeting all other requirements Passed - No active on record OFIT INSTALLER documented in this encounter Plan of Treatment Upcoming Encounters Date Type Department Care Team (Late st Contact Info) Description 06/13/2024 8:15 AM CDT Office Visit [facility] - Internal Medicine - [place] [address] [place] [address] Alayna Kauffman, PAC [address] [place] [address] 06/26/2024 11:30 AM CDT Office Visit [facility] - Cardiology - [place] [address] [place] [address] Mayelin Wang APRN, OPTICAL INSTRUMENT ASSEMBLER [address] [facility] [address] [place] [address] documented as of this encounter Visit Diagnoses Not on filedocumented in this encounter Additional Health Concerns Infection Onset Date Last Indicated Resolved Time COVID - 19 02/23/2023 02/23/2023 03/05/2023 12:1 6 AM RETROFIT INSTALLER Assessment Noted Time PHQ-9 Depression Total Score: 4 11/07/19 21 10:00 AM CDT documented as of this encounter Care Teams Product Safety Compliance Leader Relationship Specialty Start Date End Date Alayna Kauffman PAC [address] [place] [address] PCP - General Physician Dry Cans Back Tender 11/06/20 Rajesh Parsons MD [address] [place] [address] Consulting Physician Cardiovascular Disease - Cardiology 03/04/22 02/12/24 Mayelin Wang APRN, OPTICAL INSTRUMENT ASSEMBLER [address] [facility], [address] [place] [address] Nurse Practitioner Cardiology 11/04/23 documented as of this encounter
--- OUTSIDE RECORDS SUMMARY | 2024-04-23 14:31 | XMS_ITS | Encounter Summary ---
Author Organization [facility] Address [address] [address] Phone Care Team Providers Care Sales Executive Name Role Phone Alayna Kauffman PAC Primary Care Pro vider Rajesh Parsons MD Unavailable Mayelin Werner YEAST MAKER, LUG BREAKER AND WIRE PULLER Unavailable [phone]- [phone] Reason for Visit * Reason Comments Medication Refill Encounter Details Date Type Department Care Team (Late st Contact Info) Description 09/05/2022 [facility]ill [facility] - [facility] Medicine - [place] [address] [place] [address] Alayna Kauffman, PAC [address] [place] [address] Medication Refill Social History Tobacco [...] Telephone Encounter - Mayelin Conn RN - 09/06/2022 10:33 AM CDT Per nursing clinical judgement, provider to review and approve the medication(s) order(s) if appropriate. Requested Prescriptions Pending Prescriptions Disp Refills omeprazole (PriLOSEC) 40 MG CAPSULE DELAYED RELEASE [Pharmacy Med Name: Omeprazole 40 MG Oral Capsule Delayed Release] 30 Capsule 0 Sig: Take 1 capsule by mouth once daily Proton Pump Inhibitors Protocol Passed - 09/05/2022 12:45 PM Passed - No positive test in the past 12 months or most recent test was negative Passed - Visit with relevant provider in past 12 months or upcoming 90 days Recent Visits Date Type Provider Dept 01/20/22 Office Visit Alayna Kauffman, PAC [facility] [place] 12/15/21 [facility] [place] Showing recent visits within past 365 days and meeting all other requirements Future Appointments No visits were found meeting these conditions. Showing future appointments within next 90 days and meeting all other requirements Passed - No active on record documented in this encounter Plan of Treatment Upcoming Encounters Date Type Department Care Team (Late st Contact Info) Description 06/13/2024 8:15 AM CDT [facility] Visit [facility] - [place] [address] [place] [address] Alayna Kauffman, [facility] [address] [place] [address] 06/26/2024 11:30 AM CDT Office Visit [facility] - Cardiology - [place] [address] [place] [address] Mayelin Wang APRN, LUG BREAKER AND WIRE PULLER [address] [facility], [address] [place] [address] documented as of this encounter Visit Diagnoses Not on filedocumented in this encounter Additional Health Concerns Infection Onset Date Last Indicated Resolved Time COVID - 19 02/23/2023 02/23/2023 03/05/2023 12:1 6 AM ACTUARY CLERK Assessment Noted Time PHQ-9 Depression Total Score: 4 11/07/19 21 10:00 AM CDT documented as of this encounter Care Teams Sales Executive Relationship Specialty Start Date End Date Alayna Kauffman, STEVEN [address] [place] [address] PCP - General Physician Transit Proof Machine Operator 11/06/20 Rajesh Parsons MD [address] [place] [address] Consulting Physician Cardiovascular Disease - Cardiology 03/04/22 02/12/24 Mayelin Wang APRN, LUG BREAKER AND WIRE PULLER [address] [facility], [address] [place] [address] Nurse Practitioner Cardiology 11/04/23 documented as of this encounter
--- OUTSIDE RECORDS SUMMARY | 2024-04-23 14:31 | XMS_ITS | Encounter Summary ---
Author Organization [facility] Address [address] [place] [address] Phone Care Team Providers Care Machine Repairer Name Role Phone Alayna Kauffman PAC Primary Care Pro vider Rajesh Parsons MD Unavailable Mayelin Werner FUNERAL ATTENDANT, SILK SCREEN FRAME ASSEMBLER Unavailable [phone]- [phone] Reason for Visit * Reason Comments Medication Refill Encounter Details Date Type Department Care Team (Late st Contact Info) Description 06/13/2023 Refill [facility] - Internal Medicine - [place] [address] [place] [address] Alayna Kauffman, PAC [address] [place] [address] Medication Refill Social History Tobacco [...] Telephone Encounter - Mayelin Conn RN - 06/13/2023 8:31 AM CDT Medication failed the protocol, provider to review and approve the medication order if appropriate. Requested Prescriptions Pending Prescriptions Disp Refills atorvastatin (LIPITOR) 40 MG Tablet [Pharmacy Med Name: Atorvastatin Calcium 40 MG Oral Tablet] 30 Tablet 0 Sig: Take 1 tablet by mouth once daily Hmg CoA Reductase Inhibitors Protocol Failed - 06/13/2023 6:50 AM Failed - Visit with relevant provider in past 12 months or upcoming 90 days Recent Visits No visits were found meeting these conditions. Showing recent visits within past 365 days and meeting all other requirements Future Appointments No visits were found meeting these conditions. Showing future appointments within next 90 days and meeting all other requirements Failed - Lipid panel in past 12 months [...] Range Status 01/20/2022 121.6 <130 mg/dL Final Failed - CMP in past 12 months SODIUM Date Value Ref Range Status 01/20/2022 142 136 - 144 mmol/L Final POTASSIUM Date Value Ref Range Status 01/20/2022 4.0 3.5 - 5.1 mmol/L Final CHLORIDE Date Value Ref Range Status 01/20/2022 108 100 - 110 mmol/L Final CO2, VENOUS Date Value Ref Range Status 01/20/2022 24 22 - 32 mmol/L Final ANION GAP Date Value Ref Range Status 01/20/2022 14.0 8.0 - 20.0 mmol/L Final GLUCOSE Date Value Ref Range Status 01/20/2022 91 70 - 99 mg/dL Final BUN Date Value Ref Range Status 01/20/2022 13 6 - 20 mg/dL Final CREATININE, BLOOD Date Value Ref Range Status 01/20/2022 0.84 0.60 - 1.10 mg/dL Final BUN/CREATININE RATIO Date Value Ref Range Status 01/20/2022 15 12 - 20 ratio Final TOTAL PROTEIN Date Value Ref Range Status 01/20/2022 7.0 6.0 - 8.3 g/dL Final ALBUMIN Date Value Ref Range Status 01/20/2022 4.2 3.5 - 5.2 g/dL Final Comment: The colormetric methods used for the determination of Albumin may lead to falsely elevated test results in patients suffering from renal failure or insufficiency due to interference with other proteins. A/G RATIO Date Value Ref Range Status 01/20/2022 1.5 1.0 - 2.0 Final CALCIUM Date Value Ref Range Status 01/20/2022 9.8 8.9 - 10.3 mg/dL Final T BILI Date Value Ref Range Status 01/20/2022 0.4 <=1.2 mg/dL Final SGOT (AST) Date Value Ref Range Status 01/20/2022 19 <=32 U/L Final SGPT (ALT) Date Value Ref Range Status 01/20/2022 23 <=41 U/L Final ALKALINE PHOSPHATASE Date Value Ref Range Status 01/20/2022 83 35 - 105 U/L Final GFR, EST. NONAFRICAN Date Value Ref Range Status 01/20/2022 >60 >=60 Final GFR, EST. Date Value Ref Range Status 01/20/2022 >60 >=60 Final GFR, ESTIMATED Date Value Ref Range Status 01/20/2022 >60 >=60 Final Comment: Creatinine Clearance is the preferred criteria for selecting drug dose adjustments in renally impaired patients. The GFR is provided as additional pertinent clinical information. GFR is reported in mL/min/1.73 sq m. Calculation based on the Chronic Kidney Disease Epidemiology Collaboration (CKD- EPI) equation refitwithout adjustment for race. IS THE PATIENT REQUIRED TO BE FASTING? Date Value Ref Range Status 01/20/2022 No Final Passed - No positive test in the past 12 months or most recent test was negative Passed - No active on record pantoprazole (PROTONIX) 40 MG Tablet Delayed Response [Pharmacy Med Name: Pantoprazole Sodium 40 MGOral Tablet Delayed Release] 30 Tablet 0 Sig: Take 1 tablet by mouth once daily Proton Pump Inhibitors Protocol Failed - 06/13/2023 6:50 AM Failed - Visit with relevant provider in past 12 months or upcoming 90 days Recent Visits No visits were found meeting these conditions. Showing recent visits within past 365 days and meeting all other requirements Future Appointments No visits were found meeting these conditions. Showing future appointments within next 90 days and meeting all other requirements Passed - No positive test in the past 12 months or most recent test was negative Passed - No active on record documented in this encounter Plan of Treatment Upcoming Encounters Date Type Department Care Team (Late st Contact Info) Description 06/13/2024 8:15 AM CDT Office Visit [facility] - Internal Medicine - [place] [address] [place] [id number] Alayna Kauffman, PAC [address] [place] [address] 06/26/2024 11:30 AM CDT Office Visit [facility] - Cardiology - [place] [address] [place] [address] Mayelin Wang APRN, SILK SCREEN FRAME ASSEMBLER [address] [facility], [address] [place] [address] documented as of this encounter Visit Diagnoses Not on filedocumented in this encounter Additional Health Concerns Assessment Noted Time PHQ-9 Depression Total Score: 4 11/07/19 21 10:00 AM CDT documented as of this encounter Care Teams Machine Repairer Relationship Specialty Start Date End Date Alayna Kauffman, PAC [address] [place] [address] PCP - General Physician Forestry Fire Aid 11/06/20 Rajesh Parsons MD [address] [place] [address] Consulting Physician Cardiovascular Disease - Cardiology 03/04/22 02/12/24 Mayelin Wang ANASTASIA, SILK SCREEN FRAME ASSEMBLER [address] [facility], [address] [place] [address] Nurse Practitioner Cardiology 11/04/23 documented as of this encounter
--- OUTSIDE RECORDS SUMMARY | 2024-04-23 14:31 | XMS_ITS | Encounter Summary ---
Author Organization [facility] Address [address] [facility] [address] [address] Phone Care Team Providers Care Manager Respiratory Care Name Role Phone Alayna Kauffman PAC Primary Care Pro vider Rajesh Parsons MD Unavailable Mayelin Werner TRAFFIC ANALYST, TRAVEL COUNSELOR Unavailable [phone]- [phone] Reason for Visit * Reason Comments Medication Refill Encounter Details Date Type Department Care Team (Late st Contact Info) Description 08/09/2022 Refill [facility] - Internal Medicine - [place] [address] [place] [address] Alayna Kuaffman, PAC [address] [place] [address] Medication Refill Social History Tobacco [...] Telephone Encounter - Mayelin Conn RN - 08/11/2022 8:55 AM CDT Per nursing clinical judgement, provider to review and approve the medication(s) order(s) if appropriate. Requested Prescriptions Pending Prescriptions Disp Refills atorvastatin (LIPITOR) 40 MG Tablet [Pharmacy Med Name: Atorvastatin Calcium 40 MG Oral Tablet] 30 Tablet 0 Sig: Take 1 tablet by mouth once daily Hmg CoA Reductase Inhibitors Protocol Passed - 08/09/2022 4:02 PM Passed - No positive test in the past 12 months or most recent test was negative Passed - Visit with relevant provider in past 12 months or upcoming 90 days Recent Visits Date Type Provider Dept 01/20/22 Office Visit Alayna Kauffman, STEVEN [facility] [place] 12/15/21 Office Visit Alayna Kauffman, STEVEN [facility] Showing recent visits within past 365 days [...] daily Proton Pump Inhibitors Protocol Passed - 08/09/2022 4:02 PM Passed - No positive test in the past 12 months or most recent test was negative Passed - Visit with relevant provider in past 12 months or upcoming 90 days Recent Visits Date Type Provider Dept 01/20/22 Office Visit Alayna Kauffman, STEVEN [facility] [place] 12/15/21 [facility] [place] Showing recent visits within past 365 days [...] Description 06/13/2024 8:15 AM CDT Office Visit [facility] - Internal Medicine - [place] [address] [place] [address] Alayna Kauffman, PAC [address] [place] [address] 06/26/2024 11:30 AM CDT Office Visit [facility] Medical [facility] - Cardiology - [place] [address] [place] [address] Mayelin Wang APRN, TRAVEL COUNSELOR [address]2 [facility], [address] [place] [address] documented as of this encounter Visit Diagnoses Not on filedocumented in this encounter Additional Health Concerns Infection Onset Date Last Indicated Resolved Time COVID - 19 02/23/2023 02/23/2023 03/05/2023 12:1 6 AM DISABILITY PROGRAM NAVIGATOR Assessment Noted Time PHQ-9 Depression Total Score: 4 11/07/19 21 10:00 AM CDT documented as of this encounter Care Teams Manager Respiratory Care Relationship Specialty Start Date End Date Alayna Kauffman PAC [address] [place] [address] PCP - General Physician Preschool Director 11/06/20 Rajesh Parsons MD [address] [place] [address] Consulting Physician Cardiovascular Disease - Cardiology 03/04/22 02/12/24 Mayelin Wang APRN, TRAVEL COUNSELOR [address] [facility], [address] [place] [address] Nurse Practitioner Cardiology 11/04/23 documented as of this encounter
--- OUTSIDE RECORDS SUMMARY | 2024-04-23 14:31 | XMS_ITS | Encounter Summary ---
Author Organization [facility] Address [address] [place] [address] Phone Care Team Providers Care Leak Detector Name Role Phone Alayna Kauffman PAC Primary Care Pro vider Rajesh Parsons MD Unavailable Mayelin Werner EVENT MARKETING SPECIALIST, PIT CREW SUPPORT WORKER Unavailable [phone]- [phone] Reason for Visit * Reason Comments Medication Refill Encounter Details Date Type Department Care Team (Late st Contact Info) Description 04/16/2023 Refill [facility] - Internal Medicine - [place] [address] [place] [address] Alayna Kauffman, PAC [address] [place] [address] Medication Refill Social History Tobacco [...] Telephone Encounter - Mayelin Conn RN - 04/18/2023 8:47 AM CST Medication failed the protocol, provider to review and approve the medication order if appropriate. Requested Prescriptions Pending Prescriptions Disp Refills atorvastatin (LIPITOR) 40 MG Tablet [Pharmacy Med Name: Atorvastatin Calcium 40 MG Oral Tablet] 30 Tablet 0 Sig: Take 1 tablet by mouth once daily Hmg CoA Reductase Inhibitors Protocol Failed - 04/16/2023 9:25 AM Failed - Visit with relevant provider [...] negative Passed - No active on record BASE TECHNICIAN documented in this encounter Plan of Treatment Upcoming Encounters Date Type Department Care Team (Late st Contact Info) Description 06/13/2024 8:15 AM CDT Office Visit [facility] Group - Internal Medicine - [place] [address] [place] [address] Alayna Kauffman, PAC [address] [place] [address] 06/26/2024 11:30 AM CDT Office Visit [facility] - Cardiology - [place] [address] [address] Mayelin Wang APRN, PIT CREW SUPPORT WORKER #[address] [facility], [address] [place] [address] documented as of this encounter Visit Diagnoses Not on filedocumented in this encounter Additional Health Concerns Assessment Noted Time PHQ-9 Depression Total Score: 4 11/07/19 21 10:00 AM CDT documented as of this encounter Care Teams Leak Detector Relationship Specialty Start Date End Date Alayna Kauffman, PAC [address] [place] [address] PCP - General Physician Binder Selector 11/06/20 Rajesh Parsons MD [address] [place] [address] Consulting Physician Cardiovascular Disease - Cardiology 03/04/22 02/12/24 Mayelin Wang APRN, PIT CREW SUPPORT WORKER [address] [facility], [address] [place] [address] Nurse Practitioner Cardiology 11/04/23 documented as of this encounter
--- OUTSIDE RECORDS SUMMARY | 2024-04-23 14:31 | XMS_ITS | Referral Summary ---
Author Organization [facility] [address] Address [address] [place] [address] Care Team Providers Care Biofuels Technology Manager Name Role Phone Alayna Kauffman Primary Care Prov ider Encounters Date Type Department Care Team Description 02/01/2024 Orders Only [facility] Medical [facility] Vascular and Vein Surgery [address] [place] [address] [address] [place] [address] Aries Neal MD Bilateral carotid artery stenosis (Primary Dx); Subclavian artery stenosis, right (CMS/HCC) (HCC) 01/31/2024 9:00 AM MANAGER PET Office Visit [facility] Vascular and Vein Surgery [address] [place] [address] [address] [place] [address] Ginger Guerin NP Bilateral carotid artery stenosis (Primary Dx); Subclavian artery stenosis, right (CMS/HCC) (HCC); Essential hypertension; Mixed hyperlipidemia; Tobacco abuse 01/31/2024 7:57 AM MANAGER PET - 01/31/2024 11:59 PM MANAGER PET Hospital Encounter [facility] [address] [place] [id number] Bilateral carotid artery occlusion Discharge Disposition: Discharge to home or self care 01/31/2024 7:57 AM MANAGER PET - 01/31/2024 11:59 PM MANAGER PET Hospital Encounter [facility] [address] [place] [id number] Subclavian artery stenosis, right (CMS/HCC) (HCC) Discharge Disposition: Discharge to home or self care from Last 3 Months Allergies Active Allergy Reactions Criticality Noted Date Comments Oxycodone-Acetaminophen Other (See comments) Medium Hair crawling Medications acetaminophen (TYLENOL) 500 mg tablet Take 2 tablets (1,000 mg total) by mouth every 6 (six) hours as needed for pain Active multivitamin capsule Take 1 capsule by mouth every morning Active ferrous sulfate 325 mg (65 mg of elemental iron) tabletIndicatio ns:Iron Deficiency Anemia Take 1 tablet (325 mg total) by mouth 3 (three) times a week Active LORazepam (ATIVAN) 0.5 mg tablet Take 0.5 mg by mouth 2 (two) times a day as needed for anxiety. Active methylcellulose (CITRUCEL ORAL) Take 1 Dose by mouth 2 (two) times a week. Active baclofen (LIORESAL) 10 mg tablet Take 10 mg by mouth 2 (two) times a day as needed for muscle spasms. Active ascorbic acid/collagen hydr (COLLAGEN PLUS VITAMIN C ORAL) Take 1 tablet by mouth every morning. Active irbesartan (AVAPRO) 300 mg tablet Take 0.5 tablets (150 mg total) by mouth 2 (two) times a day Active dimenhydrinate (DRAMAMINE ORAL) Take 1 tablet by mouth daily as needed. Active oxyCODONE (ROXICODONE) 5 mg immediate release tabletIndicatio ns:Pain Take 1 tablet (5 mg total) by mouth every 8 (eight) hours as needed for pain. 8 tablet 9 Active Additional Information Patient not taking.Reported on 01/31/2024 docusate sodium (COLACE) 100 mg capsuleIndicati ons:constipatio n Take 1 capsule (100 mg total) by mouth 2 (two) times a day as needed for constipation. 30 capsule 9 Active Additional Information Patient not taking.Reported on 01/31/2024 levothyroxine (SYNTHROID, LEVOTHROID) 150 mcg tablet TAKE 1 TABLET BY MOUTH ONCE DAILY 30 tablet 1 9 Active hydrALAZINE (APRESOLINE) 100 mg tablet One tab po BID 1 Active metoprolol XL (TOPROL-XL) 50 mg extended release tablet 1 Active atorvastatin (LIPITOR) 20 mg tablet Take 1 tablet (20 mg total) by mouth daily 1 Active aspirin 81 mg chewable tablet Take 1 tablet (81 mg total) by mouth daily 1 Active fluticasone propionate (FLONASE) 50 mcg/actuation nasal sprayIndication s:Chronic otitis media of right ear with effusion Administer 2 sprays into each nostril daily 16 g 11 2 Active Additional Information Patient not taking.Reported on 08/12/2022 azithromycin (ZITHROMAX) 250 mg tabletIndicatio ns:Chronic otitis media of right ear with effusion Take 2 tablets the first day, then 1 tablet daily for 4 days. 6 tablet 2 Active Additional Information Patient not taking.Reported on 01/31/2024 methylPREDNISol one (MEDROL DOSEPACK) 4 mg Dosepack Follow instructions on pack, take with food; Give one pack 2 Active varenicline (CHANTIX) 1 mg tablet Take 1 tablet (1 mg total) by mouth 2 (two) times a day 2 Active amLODIPine (NORVASC) 10 mg tablet Take 10 mg by mouth nightly 2 Active omeprazole (PriLOSEC) 40 mg capsule Take 1 capsule (40 mg total) by mouth daily 2 Active Active Problems Problem Noted Date Diagnosed Date Fatty liver 01/21/2022 08/12/2022 Chronic otitis media of right ear with effusion 03/30/2021 Assessment & Plan (03/30/2021 11:47 AM MANAGER PET): Zpak with a meal daily Flonase 2 sprays into each nostril while looking down over the sink, do not sniff in or blow nose after use for at least 30 minutes daily in the evening one hour before placing CPAP Follow up in 4-6 weeks for recheck of the Right ear and Hearing test right before follow up, if no improvement in the Right ear middle ear effusion will recommend ear tube placement in the OR Dental caries 03/30/2021 Assessment & Plan (03/30/2021 11:48 AM MANAGER PET): Have Dental evaluation Bilateral impacted cerumen 03/30/2021 Assessment & Plan (03/30/2021 11:48 AM MANAGER PET): Avoid ear cleaning techniques Avoid water to ears Hyperlipidemia 12/25/2020 Assessment & Plan (01/31/2024 2:15 PM MANAGER PET): Impression: Chronic and stable. Plan: Continue atorvastatin. Bilateral carotid artery stenosis 11/13/2020 Assessment & Plan (01/31/2024 2:13 PM MANAGER PET): Impression: Moderate stenosis noted to left internal carotid artery and patent right internal carotid artery seen on recent duplex scan. Patient remains asymptomatic. Plan: Patient was seen and evaluated with Dr. Neal - Continue ongoing risk factor modifications. -Patient to follow-up in 1 year for re-evaluation with repeat carotid duplex. Assessment & Plan (02/09/2022 4:06 PM MANAGER PET): Bilateral moderate carotid stenosis that is stable. She continues to remain asymptomatic denying amaurosis fugax slurred speech unilateral numbness tingling or weakness. Seen with Dr. Neal. Plan: Return in 6 months for routine follow-up with a carotid duplex. Assessment & Plan (08/04/2021 2:41 PM CDT): History of bilateral carotid artery occlusion. Patient remains asymptomatic with bilateral moderate carotid stenosis. Denies any vision changes including amourosis fugax, or stroke like symptoms. Plan: Rturn in 6 months for carotid US. Cerebrovascular accident (CV A) due to embolism of precerebral artery 11/13/2020 History of cardiac cath 11/12/2020 Overview (07/28/2021): Dr Ace CARDIO following Yearly OV Left arm numbness 11/06/2020 Left facial numbness 11/06/2020 HAVEN (obstructive sleep apnea) 11/06/2020 S/P total thyroidectomy 04/20/2018 Paroxysmal atrial fibrillation (CMS/HCC) 018 Hyperthyroidism 06/08/2017 Essential hypertension 06/08/2017 Assessment & Plan (01/31/2024 2:15 PM MANAGER PET): Impression: Chronic and stable. Plan: Continue amlodipine, hydralazine, irbesartan, metoprolol Assessment & Plan (08/04/2021 2:37 PM CDT): Stable hypertension being controlled with blood pressure medication. Continue taking medications as per PCP. Lipid screening 06/08/2017 MARYSOL-inhibitor cough 06/08/2017 Subclavian artery stenosis, right (CMS/HCC) 06/2017 Assessment & Plan (01/31/2024 2:15 PM MANAGER PET): Impression: History of right subclavian artery stenosis. Patient denies any right upper extremity claudication. There is greater than 60 mm HG difference to the right brachial pressure seen on duplex scans. Plan: No surgical interventions indicated at this time as patient remains asymptomatic. -patient to follow-up in 1 year for re-evaluation with carotid duplex and an upper extremity arterial Doppler. Assessment & Plan (02/09/2022 4:05 PM MANAGER PET): History of right subclavian artery stenosis. States she does continue to have fatigue to the right arm but denies any pain with exertion. Status post right subclavian balloon angiogram in October [address] Maloney. Denies any worsening symptoms. Seen with Dr. Neal. Plan: Return in 6 months with routine bilateral carotid duplex and upper extremity arterial Doppler. Assessment & Plan (08/04/2021 2:43 PM CDT): History of right subclavian artery stenosis status post balloon angio that was done in November of 2020 at an outside facility. Patient denies any right arm pain on exertion has palpable radial and brachial pulses. Tobacco abuse 06/08/2017 Assessment & Plan (01/31/2024 2:18 PM MANAGER PET): Impression: Patient is a current everyday smoker smoking 3 cigarettes daily. Plan: Discussed with the patient greater than 3 minutes about the importance of smoking cessation and its benefits to the cardiovascular health. Patient reports working on quitting completely with the hopes of completely quitting by Rosy. Assessment & Plan (02/09/2022 4:04 PM MANAGER PET): Patient with history of tobacco abuse who is a current everyday 3 cigarettes per day smoker. I had a greater than 3 minute discussion with the patient on the importance of smoking cessation and the negative affects on their cardiovascular health. Patient understands importance of cessation. Tobacco dependence syndrome 06/08/2017 Assessment & Plan (08/04/2021 2:37 PM CDT): Patient with history of tobacco abuse who has worked to decrease her smoking to 3 cigarettes per day. I had a greater than 3 minute discussion with the patient on the importance of smoking cessation and the negative affects on their cardiovascular health. Patient understands importance of cessation. Immunizations Immunization Administration Dates Next Due Influenza, Quadrivalent, Joy l Culture-based MDCK, Antibiotic Free, Intramuscular 12/23/2018,12/14/2018 Influenza, Quadrivalent, Spl it, Preservative Free, Intramuscular 02/01/2018 Tetanus toxoid, adsorbed 03/07/2008 Social History Tobacco Use Types Packs/Day Years Used Date Smoking Tobacco: Every Day Cigarettes 1 40.1 Started: 1984 Smokeless Tobacco: Never Tobacco Cessation:Ready to Q uit: Not Asked; Counseling Given: Not Answered Comments:Smoking History Packs/day: 1 Packs Alcohol Use Standard Drinks/Week Comments No 0 (1 standard drink = 0.6 oz pur e alcohol) Personal Safety Answer Date Recorded Have you ever been in or are you currently in a harmful physical or emotional relationship or is someone making you feel afraid or unsafe? Denies 07/28/2023 Comments Unknown Sex and Gender Information Value Date Recorded Sex Assigned at Not on file Legal Sex Female 12:24 AM MANAGER PET Gender Identity Not on file Sexual Orientation Not on file Last Filed Vital Signs Vital Sign Reading Time Taken Comments Blood Pressure 133/54 01/31/2024 9:29 AM MANAGER PET Pulse 60 01/31/2024 9:29 AM MANAGER PET Temperature 36.4 C (97.5 F) 07/28/2023 9:34 AM CDT Respiratory Rate 18 07/28/2023 9:34 AM CDT Oxygen Saturation 100% 07/28/2023 9:34 AM CDT Inhaled Oxygen Concentration - - Weight 99.8 kg (220 lb) 01/31/2024 9:29 AM MANAGER PET Height 160 cm (5' 3 ) 01/31/2024 9:29 AM MANAGER PET Body Mass Index 38.97 01/31/2024 9:29 AM MANAGER PET Plan of Treatment Not on file Procedures Procedure Name Priority Date/Time Associated Diagnosis Comments US CAROTIDS DUPLEX BILATERAL Schedule Routine, Read Routine (OP Routine) 01/31/2024 9:25 AM MANAGER PET Bilateral carotid artery occlusion US ARTERIAL DOPPLER UPPER EXTREMITY BILATERAL Schedule Routine, Read Routine (OP Routine) 01/31/2024 9:24 AM MANAGER PET Subclavian artery stenosis, right (CMS/HCC) (HCC) from Last 3 Months Results * US Carotids Duplex Bilateral (01/31/2024 9:25 AM MANAGER PET) Anatomical Region Laterality Modality Vascular Bilateral Ultrasound 01/31/2024 Narrative 02/01/2024 5:53 PM MANAGER PET [employer] Job ID: [id number] [employer] Document ID: [id number] Dictated date/time: REASON FOR STUDY Right subclavian stenosis. Right brachial artery pressure is 97 mmHg, left is 158 mmHg. Reverse flow in the right vertebral artery. Antegrade flow in left vertebral artery. Minimal plaque right internal carotid artery with a less than 50% diameter stenosis, moderate plaque left internal carotid artery with a 50% to 69% diameter stenosis. No significant increase in peak systolic velocity right internal carotid artery. Velocity 110 cm/sec. Moderate increase in peak systolic velocity left internal carotid artery, velocity is 162 cm/sec. The external carotid velocity on the right 171 cm/sec and on the left 190 cm/second. IMPRESSION Reverse flow in the right vertebral artery with decreased right brachial artery pressure indicating a right subclavian steal phenomenon. No significant right carotid stenosis. Moderate stenosis left internal carotid artery measuring 50% to 69% in diameter. Job ID/Internal Job ID: [id number] Aries Neal MD [facility] US PROCEDURES Final Res ult * US Arterial Doppler Upper Extremity Bilateral (01/31/2024 9:24 AM MANAGER PET) Anatomical Region Laterality Modality Vascular Bilateral Ultrasound 01/31/2024 Narrative 02/01/2024 5:53 PM MANAGER PET [employer] Job ID: [id number] [employer] Document ID: [id number] Dictated date/time: [id number] BILATERAL UPPER EXTREMITY DUPLEX STUDY REASON FOR STUDY Right subclavian artery stenosis. FINDINGS Right brachial artery pressure is 97 mmHg. Left is 158 mmHg. Biphasic flow right subclavian, brachial, radial and ulnar arteries. Triphasic flow in the left subclavian, brachial, radial and ulnar arteries. IMPRESSION Right subclavian artery stenosis with mild distal ischemia. Normal indices and waveforms left lower extremity with no significant distal ischemia. Job ID/Internal Job ID: [id number] Aires Neal MD [facility] PROCEDURES Final Res ult from Last 3 Months Insurance [employer] OOS CHOICE PLUS Advance Directives For more information, please contact: [phone] * Full Code (Latest Code Status on File) Date Activated Date Inactivated Comments 11/04/2020 5:40 AM 11/04/2020 4:42 PM * Full Code Date Activated Date Inactivated Comments 04/05/2018 12:01 AM 04/05/2018 6:57 PM Care Teams Biofuels Technology Manager Relationship Specialty Start Date End Date Alayna Kauffman PA PCP - General Neurosurgery 11/13/20
--- OUTSIDE RECORDS SUMMARY | 2024-04-23 14:31 | XMS_ITS | Encounter Summary ---
Author Organization [facility] Address [address] [facility] [address] [address] Phone Care Team Providers Care Nuclear Fuel Enrichment Technician Name Role Phone Alayna Kauffman PAC Primary Care Pro vider Rajesh Parsons MD Unavailable Mayelin Werner RAILCAR BRAKE OPERATOR, DYNAMITE PACKING MACHINE FEEDER Unavailable [phone] Reason for Visit * Reason Comments Medication Refill Encounter Details Date Type Department Care Team (Late st Contact Info) Description 03/27/2022 Refill [facility] - [facility] - [place] [address] [place] [address] Alayna Kauffman, PAC [address] [place] [address] Medication Refill Social History Tobacco [...] Telephone Encounter - Mayelin Conn RN - 03/29/2022 10:52 AM CST Medication warning, requires approval by provider Per nursing clinical judgement, provider to review and approve the medication(s) order(s) if appropriate. Requested Prescriptions Pending Prescriptions Disp Refills atorvastatin (LIPITOR) 40 MG Tablet [Pharmacy Med Name: Atorvastatin Calcium 40 MG Oral Tablet] 30 Tablet 0 Sig: Take 1 tablet by mouth once daily Hmg CoA Reductase Inhibitors Protocol Passed - 03/27/2022 5:08 PM Passed - No positive test in the past 12 months or most recent test was negative Passed - Visit with relevant provider in past 12 months or upcoming 90 days Recent Visits Date Type Provider Dept 01/20/22 Office Visit Alayna Kauffman, PAC [facility] [place] 12/15/21 Office Visit Alayna Kauffman, PAC [facility] [place] 08/10/21 Office Visit Alayna Kauffman, PAC [facility] [place] 06/08/21 Office Visit Alayna Kauffman, PAC [facility] [place] Showing recent visits within past 365 days and meeting all other requirements Future Appointments Date Type Provider Dept 06/16/22 Appointment Alyana Kauffman PAC [facility] [place] Showing future appointments within next 90 days [...] daily Proton Pump Inhibitors Protocol Passed - 03/27/2022 5:08 PM Passed - No positive test in the past 12 months or most recent test was negative Passed - Visit with relevant provider in past 12 months or upcoming 90 days Recent Visits Date Type Provider Dept 01/20/22 Office Visit Alayna Kauffman, PAC [facility] [place] 12/15/21 Office Visit Alayna Kauffman, PAC [facility] [place] 08/10/21 Office Visit Alayna Kauffman, PAC [facility] [place] 06/08/21 Office Visit Alayna Kauffman, PAC [facility] [place] Showing recent visits within past 365 days and meeting all other requirements Future Appointments Date Type Provider Dept 06/16/22 Appointment Alayna Kauffman PAC [facility] [place] Showing future appointments within next 90 days and meeting all other requirements Passed - No active on record HORE WIND TURBINE TECHNICIAN documented in this encounter Plan of Treatment Upcoming Encounters Date Type Department Care Team (Late st Contact Info) Description 06/13/2024 8:15 AM CDT Office Visit [facility] - Internal Medicine - [place] [address] [place] [address] Alayna Kauffman, PAC [address] [place] [address] 06/26/2024 11:30 AM CDT Office Visit [facility] - Cardiology - [place] [address] [place] [address] Mayelin Wang APRN, DYNAMITE PACKING MACHINE FEEDER [address] [facility], [facility] [address] [place] [address] documented as of this encounter Visit Diagnoses Not on filedocumented in this encounter Additional Health Concerns Infection Onset Date Last Indicated Resolved Time COVID - 19 02/23/2023 02/23/2023 03/05/2023 12:1 6 AM OFFSHORE WIND TURBINE TECHNICIAN Assessment Noted Time PHQ-9 Depression Total Score: 4 11/07/19 21 10:00 AM CDT documented as of this encounter Care Teams Nuclear Fuel Enrichment Technician Relationship Specialty Start Date End Date Alayna Kauffman PAC [address] [place] [address] PCP - General Physician Paper Bag Maker 11/06/20 Rajesh Parsons MD [address] [place] [address] Consulting Physician Cardiovascular Disease - Cardiology 03/04/22 02/12/24 Mayelin Wang APRN, DYNAMITE PACKING MACHINE FEEDER [address] [facility], [address] [place] [address] Nurse Practitioner Cardiology 11/04/23 documented as of this encounter
--- OUTSIDE RECORDS SUMMARY | 2024-04-23 14:31 | XMS_ITS | Encounter Summary ---
Author Organization [facility] Address [address] [place] [address] Phone Care Team Providers Care Staff Midwife/Apprenticeship Director Name Role Phone Alayna Kauffman PAC Primary Care Pro vider Rajesh Parsons MD Unavailable Mayelin Werner ASPHALT DISTRIBUTOR TENDER, RIM FIRE PRIMING TOOL SETTER Unavailable [phone] Reason for Visit * Reason Comments Medication Refill Encounter Details Date Type Department Care Team (Late st Contact Info) Description 04/17/2023 Refill [facility] - [place] [address] [place] [address] Alayna Kauffman, PAC [address] [place] [address] Medication Refill Social History Tobacco [...] Encounter - Mayelin Conn RN - 04/18/2023 9:01 AM CST Medication failed the protocol, provider to review and approve the medication order if appropriate. Requested Prescriptions Pending Prescriptions Disp Refills pantoprazole (PROTONIX) 40 MG Tablet Delayed Response [Pharmacy Med Name: Pantoprazole Sodium 40 MGOral Tablet Delayed Release] 30 Tablet 0 Sig: Take 1 tablet by mouth once daily Proton Pump Inhibitors Protocol Failed - 04/17/2023 7:51 AM Failed - Visit with relevant provider [...] negative Passed - No active on record O BOOTH OPERATOR documented in this encounter Plan of Treatment Upcoming Encounters Date Type Department Care Team (Late st Contact Info) Description 06/13/2024 8:15 AM CDT [facility] Visit [facility] - [place] [address] [place] [address] Alayna Kauffman PAC [address] [facility] [place] [address] 06/26/2024 11:30 AM CDT Office Visit [facility] - Cardiology - [place] [address] [place] [address] Mayelin Wang APRN, RIM FIRE PRIMING TOOL SETTER [address] [facility], [address] [place] [address] documented as of this encounter Visit Diagnoses Not on filedocumented in this encounter Additional Health Concerns Assessment Noted Time PHQ-9 Depression Total Score: 4 11/07/19 21 10:00 AM CDT documented as of this encounter Care Teams Staff Midwife/Apprenticeship Director Relationship Specialty Start Date End Date Alayna Kauffman PAC [address] [place] [address] PCP - General Physician Collections Professional 11/06/20 Rajesh Parsons MD [address] [place] [address] Consulting Physician Cardiovascular Disease - Cardiology 03/04/22 02/12/24 Mayelin Wang APRN, RIM FIRE PRIMING TOOL SETTER [address] [facility], [address] [place] [address] Nurse Practitioner Cardiology 11/04/23 documented as of this encounter
--- OUTSIDE RECORDS SUMMARY | 2024-04-23 14:31 | XMS_ITS | Encounter Summary ---
Author Organization [facility] Address [address] [place] [address] Phone Care Team Providers Care Enterprise Manager Name Role Phone Alayna Kauffman PAC Primary Care Pro vider Rajesh Parsons MD Unavailable Mayelin Werner GROUP LEADER SEMICONDUCTOR PROCESSING, R AND D LAB TECHNICIAN Unavailable [phone] Reason for Visit * Reason Comments Medication Refill Encounter Details Date Type Department Care Team (Late st Contact Info) Description 05/14/2023 Refill [facility] - [facility] - [place] [address] [place] [address] Alayna Kauffman, PAC [address] [place] [address] Medication Refill Social History Tobacco [...] Telephone Encounter - Mayelin Conn RN - 05/16/2023 9:06 AM CDT Medication failed the protocol, provider to review and approve the medication order if appropriate. Requested Prescriptions Pending Prescriptions Disp Refills atorvastatin (LIPITOR) 40 MG Tablet [Pharmacy Med Name: Atorvastatin Calcium 40 MG Oral Tablet] 30 Tablet 0 Sig: Take 1 tablet by mouth once daily Hmg CoA Reductase Inhibitors Protocol Failed - 05/14/2023 6:51 AM Failed - Visit with relevant provider [...] daily Proton Pump Inhibitors Protocol Failed - 05/14/2023 6:51 AM Failed - Visit with relevant provider [...] Description 06/13/2024 8:15 AM CDT Office Visit [facility] - Internal Medicine - [place] [address] [place] [id number] Alayna Kauffman, PAC [address] [place] [address] 06/26/2024 11:30 AM CDT Office Visit [facility] Medical Group - Cardiology - [place] [address] [place] [address] Mayelin Wang APRN, R AND D LAB TECHNICIAN [address]2 [facility], [address] [place] [address] documented as of this encounter Visit Diagnoses Not on filedocumented in this encounter Additional Health Concerns Assessment Noted Time PHQ-9 Depression Total Score: 4 11/07/19 21 10:00 AM CDT documented as of this encounter Care Teams Enterprise Manager Relationship Specialty Start Date End Date Alayna Kauffman, PAC [address] [place] [address] PCP - General Physician Polishing Machine Operator 11/06/20 Rajesh Parsons MD [address] [place] [address] Consulting Physician Cardiovascular Disease - Cardiology 03/04/22 02/12/24 Mayelin Wang ANASTASIA, R AND D LAB TECHNICIAN #2 [facility], [address] [place] [address] Nurse Practitioner Cardiology 11/04/23 documented as of this encounter
--- OUTSIDE RECORDS SUMMARY | 2024-04-23 14:31 | XMS_ITS | Clinical Summary ---
Author Organization [facility] Address [facility] [place] [address] Care Team Providers Care Commercial Roofing Estimator Name Role Phone Julius Cox DO Primary Care Provider Allergies Active Allergy Reactions Criticality Noted Date Comments Oxycodone-Acetaminoph en Other (see comment) 09/02/2020 Makes her feel like her hair is crawling Can take Tylenol Medications EUTHYROX 175 MCG tablet Take 175 mcg by mouth daily. 08/25/2020 Active atorvastatin 20 MG tablet Take 20 mg by mouth daily. 08/27/2020 Active metoprolol tartrate 25 MG tablet Take 25 mg by mouth 2 (two) times a day. Patient only takes it daily in the am 08/27/2020 Active irbesartan 300 MG tablet Take 300 mg by mouth 2 (two) times a day. Take 1/2 (one-half) tablet by mouth at night Takes full pill in the morning 08/27/2020 Active meclizine 12.5 MG tablet Take 1 tablet by mouth as needed. 11/06/2019 Active HYDROcodone-reva taminophen (NORCO) 5-325 MG tabletIndicatio ns:Acute Pain < 7 Day Supply Take 1 tablet by mouth every 4 (four) hours as needed. Indications: Acute Pain < 7 Day Supply 30 tablet 11/03/2020 Active Active Problems No known active problems Family History Medical History Relation Comments COPD Father Hypertension Mother Hypertension Sister Relation Status Comments Daughter Alive Father Mother Alive Sister Alive Son 1 Alive Son 2 Alive Social History Tobacco Use Types Packs/Day Years Used Date Smoking Tobacco: Every Day Cigarettes 1 30 Smokeless Tobacco: Never Alcohol Use Standard Drinks/Week Comments Not Currently 0 (1 standard drink = 0.6 oz pur e alcohol) social Comments No Sex and Gender Information Value Date Recorded Sex Assigned at Not on file Legal Sex Female 7:01 AM CDT Gender Identity Not on file Sexual Orientation Not on file Last Filed Vital Signs Vital Sign Reading Time Taken Comments Blood Pressure 164/70 11/03/2020 6:30 PM CDT Pulse 70 11/03/2020 6:30 PM CDT Temperature 36.1 C (96.9 F) 11/03/2020 6:15 PM CDT Respiratory Rate 27 11/03/2020 6:30 PM CDT Oxygen Saturation 91% 11/03/2020 6:30 PM CDT Inhaled Oxygen Concentration - - Weight 100 kg (220 lb 7.4 oz) 11/03/2020 12:30 P M CDT Height 160 cm (5' 3 ) 11/03/2020 12:30 PM CDT Body Mass Index 39.05 11/03/2020 12:30 PM CDT Plan of Treatment Health Maintenance Due Date Last Done Comments Cervical Cancer Screening Pa p Smear (Age 30 to 64) Every 3 Years 1968 Colorectal Cancer Screening Colonoscopy (10 Years) 1968 Annual Physical 01/25/1971 Pneumococcal Vaccine: Pediat rics (0 to 5 Years) and At-Risk Patients (6 to 64 Years) (1 of 2 - PCV) 01/25/1974 Hepatitis C 01/25/1986 Hepatitis B Vaccines (1 of 3 - 19+ 3-dose series) 01/25/1987 Cervical Cancer Screening Pa p with HPV Testing (Age 30 to 64) Every 5 Years 01/25/1998 Cervical Cancer Screening with HPV 01/25/1998 Mammogram Screening 2008 DTaP, Tdap and Td Vaccines ( 1 - Tdap) 03/08/2008 03/07/2008 Zoster Vaccines (1 of 2) 01/25/2018 COVID-19 Vaccine (2023-2 5 season) 2023 Influenza Adult (#1) 2023 12/14/2018 Meningococcal B Vaccine Aged Out No l onger eligible based on patient's age to complete this topic Meningococcal Vaccine Aged Out No silvia jessica eligible based on patient's age to complete this topic RSV Immunizations Under 20 Months Aged Out No longer eligible based on patient's age to complete this topic Insurance [facility] Advance Directives * Full Code (Latest Code Status on File) Date Activated Date Inactivated Comments 11/03/2020 6:15 PM 11/03/2020 9:08 PM * Full Code Date Activated Date Inactivated Comments 09/02/2020 11:33 AM 09/02/2020 7:01 PM Care Teams Commercial Roofing Estimator Relationship Specialty Start Date End Date Julius Cox DO [address] [address] PCP - General INTERNAL MEDICINE 08/11/20
--- OUTSIDE RECORDS SUMMARY | 2024-04-23 14:31 | XMS_ITS | Encounter Summary ---
Author Organization [facility] Address [address] [place] [address] Phone Care Team Providers Care Diabetes Physician Name Role Phone Alayna Kauffman PAC Primary Care Pro vider Rajesh Parsons MD Unavailable Mayelin Werner DIRECTOR BEHAVIORAL HEALTH, IN HOME NANNY Unavailable [phone] Reason for Visit * Reason Comments Medication Refill Encounter Details Date Type Department Care Team (Late st Contact Info) Description 09/04/2021 Refill [facility] - [place] [address] [place] [address] Alayna Kauffman, PAC [address] [place] [address] Medication Refill Social History Tobacco [...] on file Sexual Orientation Not on file COVID-19 Exposure Response Date Recorded In the last 10 days, have yo u been in contact with someone who was confirmed or suspected to have Coronavirus/COVID-19? No / Unsure 08/14/2021 8:47 AM CDT documented as of this encounter Miscellaneous Notes * Telephone Encounter - Wen Muir RN - 09/04/2021 1:36 PM CDT Per nursing clinical judgement, provider to review and approve the medication(s) order(s) if appropriate. Requested Prescriptions Pending Prescriptions Disp Refills atorvastatin (LIPITOR) 40 MG Tablet [Pharmacy Med Name: Atorvastatin Calcium 40 MG Oral Tablet] 30 Tablet 0 Sig: Take 1 tablet by mouth once daily Hmg CoA Reductase Inhibitors Protocol Passed - 09/04/2021 7:47 AM Passed - No positive test in the past 12 months or most recent test was negative Passed - Visit with relevant provider in past 12 months or upcoming 90 days Recent Visits Date Type Provider Dept 08/10/21 Office Visit Alayna Kauffman, PAC [facility] [place] 06/08/21 Office Visit Alayna Kauffman, PAC [facility] [place] 03/09/21 Office Visit Alayna Kauffman, PAC [facility] [place] 02/04/21 Office Visit Alayna Kauffman, PAC [facility] [place] 12/15/20 Office Visit Alayna Kauffman, PAC [facility] [place] 11/12/20 Office Visit Alayna Kauffman, PAC [facility] [place] 11/06/20 Office Visit Alayna Kauffman, PAC [facility] [place] Showing recent visits within past 365 days and meeting all other requirements Future Appointments No visits were found meeting these conditions. Showing future appointments within next 90 days and meeting all other requirements Passed - No active on record Passed - Lipid panel in past 12 months LDL Date Value Ref Range Status 06/08/2021 64 5 - 130 mg/dL Final HDL CHOLESTEROL Date Value Ref Range Status 06/08/2021 30.2 (L) >40 mg/dL Final CHOLESTEROL Date Value Ref Range Status 06/08/2021 128 <=200 mg/dL Final TRIGLYCERIDES Date Value Ref Range Status 06/08/2021 167 (H) <150 mg/dL Final VLDL Date Value Ref Range Status 06/08/2021 33 5 - 55 mg/dL Final CHOL/HDL RATIO Date Value Ref Range Status 06/08/2021 4.2 0.0 - 4.4 Final NON-HDL CHOLESTEROL Date Value Ref Range Status 06/08/2021 97.8 <130 mg/dL Final documented in this encounter Plan of Treatment Upcoming Encounters Date Type Department Care Team (Late st Contact Info) Description 06/13/2024 8:15 AM CDT Office Visit [facility] - Internal Medicine - [place] [address] [place] [id number] Alayna Kauffman, PAC [address] [place] [address] 06/26/2024 11:30 AM CDT Office Visit [facility] - Cardiology - [place] [address] [place] [address] Mayelin Wang APRN, IN HOME NANNY [address] [facility], [address] [place] [address] documented as of this encounter Visit Diagnoses Not on filedocumented in this encounter Additional Health Concerns Infection Onset Date Last Indicated Resolved Time COVID - 19 12/15/2021 12/15/2021 12/25/2021 12:1 6 AM CDT COVID - 19 02/23/2023 02/23/2023 03/05/2023 12:1 6 AM FORENSIC ANALYST Assessment Noted Time PHQ-9 Depression Total Score: 4 11/07/19 21 10:00 AM CDT documented as of this encounter Care Teams Diabetes Physician Relationship Specialty Start Date End Date Alayna Kauffman, PAC [address] [place] [address] PCP - General Physician Hand I Blocker 11/06/20 Rajesh Parsons MD [address] [facility] [address] Consulting Physician Cardiovascular Disease - Cardiology 03/04/22 02/12/24 Mayelin Wang, DIRECTOR BEHAVIORAL HEALTH, IN HOME NANNY [address] [facility], [address] [place] [address] Nurse Practitioner Cardiology 11/04/23 documented as of this encounter
--- OUTSIDE RECORDS SUMMARY | 2024-04-23 14:31 | XMS_ITS | Encounter Summary ---
Author Organization [facility] Address [address] [facility] [address] Phone Care Team Providers Care Chemical Production Machine Operator Name Role Phone Alayna Kauffman PAC Primary Care Pro vider Rajesh Parsons MD Unavailable Mayelin Werner MANNEQUIN WIG MAKER, AUTOMOBILE DAMAGE APPRAISER Unavailable [phone] Reason for Visit * Reason Comments Medication Refill Encounter Details Date Type Department Care Team (Late st Contact Info) Description 10/13/2022 Refill [facility] - [place] [address] [place] [address] Alayna Kauffman, PAC [address] [place] [address] Medication Refill Social History Tobacco [...] Telephone Encounter - Mayelin Conn RN - 10/14/2022 9:58 AM CDT Per nursing clinical judgement, provider to review and approve the medication(s) order(s) if appropriate. Requested Prescriptions Pending Prescriptions Disp Refills atorvastatin (LIPITOR) 40 MG Tablet [Pharmacy Med Name: Atorvastatin Calcium 40 MG Oral Tablet] 30 Tablet 0 Sig: Take 1 tablet by mouth once daily Hmg CoA Reductase Inhibitors Protocol Passed - 10/13/2022 5:58 PM Passed - No positive test in the past 12 months or most recent test was negative Passed - Visit with relevant provider in past 12 months or upcoming 90 days Recent Visits Date Type Provider Dept 01/20/22 Office Visit Alay[facility], ST[facility]/15[facility]21 [facility] Showing recent visits within past 365 days [...] Range Status 01/20/2022 121.6 <130 mg/dL Final Passed - CMP in past 12 months SODIUM [...] Value Ref Range Status 01/20/2022 No Final omeprazole (PriLOSEC) 40 MG CAPSULE DELAYED RELEASE [Pharmacy Med Name: Omeprazole 40 MG Oral Capsule Delayed Release] 30 Capsule 0 Sig: Take 1 capsule by mouth once daily Proton Pump Inhibitors Protocol Passed - 10/13/2022 5:58 PM Passed - No positive test in the past 12 months or most recent test was negative Passed - Visit with relevant provider in past 12 months or upcoming 90 days Recent Visits Date Type Provider Dept 01/20/22 Office Visit Alayna Kauffman, STEVEN [facility] [place] 12/15/21 Office Visit [facility] [place] Showing recent visits within past 365 days [...] Description 06/13/2024 8:15 AM CDT Office Visit [facility] - Internal Medicine - [place] [address] [place] [address] Alayna Kauffman, STEVEN [address] [facility] [place] [address] 06/26/2024 11:30 AM CDT Office Visit [facility] - Cardiology - [place] [address] [place] [address] Mayelin Wang APRN, AUTOMOBILE DAMAGE APPRAISER [address] [facility], [address] [place] [address] documented as of this encounter Visit Diagnoses Not on filedocumented in this encounter Additional Health Concerns Infection Onset Date Last Indicated Resolved Time COVID - 19 02/23/2023 02/23/2023 03/05/2023 12:1 6 AM METALLURGICAL ENGINEERING TECHNICIAN Assessment Noted Time PHQ-9 Depression Total Score: 4 11/07/19 21 10:00 AM CDT documented as of this encounter Care Teams Chemical Production Machine Operator Relationship Specialty Start Date End Date Alayna Kauffman, PAC [address] [place] [address] PCP - General Physician Computer Typesetter 11/06/20 Rajesh Parsons MD [address] [place] [address] Consulting Physician Cardiovascular Disease - Cardiology 03/04/22 02/12/24 Mayelin Wang, MANNEQUIN WIG MAKER, AUTOMOBILE DAMAGE APPRAISER [address] [facility], [address] [place] [address] Nurse Practitioner Cardiology 11/04/23 documented as of this encounter
--- OUTSIDE RECORDS SUMMARY | 2024-04-23 14:31 | XMS_ITS | Encounter Summary ---
Author Organization [facility] Address [address] [place] [address] Care Team Providers Care Outbound Call Center Representative Name Role Phone Julius Cox DO Primary Care Provider [phone] Encounter Details Date Type Department Care Team (Late st Contact Info) Description 10/30/2020 Prep for Procedure [facility] [place] [address] Lyle Maloney MD [address] [place] [phone] Social History Tobacco Use Types Packs/Day Years [...] Exposure Response Date Recorded In the last month, have you been in contact with someone who was confirmed or suspected to have Coronavirus / COVID-19? No / Unsure 10/30/2020 9:22 AM CDT documented as of this encounter Plan of Treatment Not on file documented as of this encounter Results * CORONAVIRUS (COVID 19) (10/31/2020 9:00 AM CDT) SPEC DESCRIPTION NASAL 11/01/19 9:14 AM CDT [facility] CORONAVIRUS SARS COV 2 PCR (RESP) NEGATIVE NEGATIVE 10/31/2020 9:12 PM CDT [facility] Comment: THE SARS-CoV-2 TEST HAS BEEN AUTHORIZED BY THE FDA UNDER AN EUA FOR USE BY AUTHORIZED LABORATORIES. PERFORMED BY NUCLEIC ACID AMPLIFICATION PCR FIRST TEST NO 10/31/2020 9:14 AM CDT [facility] EMPLOYED IN HEALTHCARE NO 10/31/2020 9:14 AM CDT [facility] SYMPTOMATIC DEFINED BY CDC NO 10/31/2020 9:14 AM CDT [facility] HOSPITALIZATION STATUS NO 10/31/2020 9:14 AM CDT [facility] PATIENT IN ICU NO 10/31/2020 9:14 AM CDT [facility] RESIDENT OF [facility] NO 10/31/2020 9:14 AM CDT [facility] NOT 10/31/2020 9:14 AM CDT [facility] NASAL STRUCTURE / Unknown 10/31/2020 9:00 AM CDT Lyle Maloney MD MICROBIOLOGY - GENERAL ORDERABLE S Final Result [facility] [address] [place] [address], [place] [phone] [facility] [address] [place] [address], [place] [phone] documented in this encounter Visit Diagnoses Diagnosis Pre-op exam- Primary Preoperative examination, unspecified documented in this encounter Additional Health Concerns Infection Onset Date Last Indicated Resolved Time COVID-19 Rule Out 10/31/2020 10/31/2020 10/31/2020 9:13 PM CDT documented as of this encounter Care Teams Outbound Call Center Representative Relationship Specialty Start Date End Date Julius Cox DO [address] [address] PCP - General INTERNAL MEDICINE 08/11/20 documented as of this encounter
--- OUTSIDE RECORDS SUMMARY | 2024-04-23 14:31 | XMS_ITS | Encounter Summary ---
Author Organization [facility] Address [address] [place] [address] Phone Care Team Providers Care General Road Foreman Name Role Phone Alayna Kauffman PAC Primary Care Pro vider Rajesh Parsons MD Unavailable Mayelin Werner PLUMBER, CNC GRINDER Unavailable [phone] Reason for Visit * Reason Comments Medication Refill Encounter Details Date Type Department Care Team (Late st Contact Info) Description 08/08/2023 Refill [facility] - Internal Medicine - [place] [address] [place] [address] Alayna Kauffman, PAC [address] [place] [address] Medication Refill Social History Tobacco Use Types Packs/Day Years Used Date Smoking Tobacco: Every Day Cigarettes Smokeless Tobacco: Never Comments:Less than a pack a day Alcohol Use Standard Drinks/Week Comments Not Currently 0 (1 standard drink = 0.6 oz pur e alcohol) [facility] Utilities Answer Date Recorded In the past 12 months has e electric, gas, oil, or water company threatened to shut off services in your home? No 08/04/2023 Social Connection and Isolat ion Panel [NHANES] Answer Date Recorded In a typical week, how many times do you talk on the phone with family, friends, or neighbors? More than three times a week 08/04/2023 How often do you get togethe r with friends or relatives? Never 08/04/2023 How often do you attend chur ch or mandaeism services? More than 4 times per year 08/04/2023 Do you belong to any clubs o r organizations such as evangelical groups, unions, fraternal or athletic groups, or school groups? No 08/04/2023 How often do you attend meet ings of the clubs or organizations you belong to? Never 08/04/2023 Are you , , di vorced, , never , or living with a partner? 08/04/2023 AUDIT-C Answer Date Recorded Q1: How often do you have a drink containing alc ohol? Monthly or less 08/04/2023 Q2: How many drinks containi ng alcohol do you have on a typical day when you are drinking? 1 or 2 08/04/2023 Q3: How often do you have si x or more drinks on one occasion? Never 08/04/2023 Overall Financial Resource Strain (CARDIA) Answe r Date Recorded How hard is it for you to pa y for the very basics like food, housing, medical care, and heating? Somewhat hard 08/04/2023 PHQ-2 Answer Date Recorded Total Score - Questions 1-9 0 07/07 [facility] - Occupational Stress Questionnaire Answer Date Recorded Do you feel stress - tense, restless, nervous, or anxious, or unable to sleep at night because your mind is troubled all the time - these days? To some extent 08/04/2023 Exercise Vital Sign Answer Date Recorde d On average, how many days pe r week do you engage in moderate to strenuous exercise (like a brisk walk)? 5 days 08/04/2023 On average, how many minutes do you engage in exercise at this level? 20 min 08/04/2023 Hunger Vital Sign Answer Date Recorded Within the past 12 months, y ou worried that your food would run out before you got the money to buy more. Sometimes true Within the past 12 months, t he food you bought just didn't last and you didn't have money to get more. Sometimes true PRAPARE - Transportation Answer Date Re corded In the past 12 months, has l ack of transportation kept you from medical appointments or from getting medications? No 07/07 In the past 12 months, has l ack of transportation kept you from meetings, work, or from getting things needed for daily living? No 08/04/2023 Housing Stability Vital Sign Answer Ryan e Recorded In the last 12 months, was t here a time when you were not able to pay the mortgage or rent on time? No 08/04/2023 In the last 12 months, how many places have you lived? 1 08/04/2023 In the last 12 months, was t here a time when you did not have a steady place to sleep or slept in a residential (including now)? No 08/04/2023 Comments No Sex and Gender Information Value Date Recorded Sex Assigned at Not on file Legal Sex Female 11:52 PM CDT Gender Identity Not on file Sexual Orientation Not on file documented as of this encounter Miscellaneous Notes * Telephone Encounter - Mayelin Conn RN - 08/08/2023 1:10 PM CDT Medication failed the protocol, provider to review and approve the medication order if appropriate. Requested Prescriptions Pending Prescriptions Disp Refills pantoprazole (PROTONIX) 40 MG Tablet Delayed Response [Pharmacy Med Name: Pantoprazole Sodium 40 MGOral Tablet Delayed Release] 30 Tablet 0 Sig: Take 1 tablet by mouth once daily Proton Pump Inhibitors Protocol Passed - 08/08/2023 10:40 AM Passed - No positive test in the past 12 months or most recent test was negative Passed - Visit with relevant provider in past 12 months or upcoming 90 days Recent Visits Date Type Provider Dept 08/04/23 Office Visit [facility]ay[facility], [facility] [place] Showing recent visits within past 365 days and meeting all other requirements Future Appointments Date Type Provider Dept 09/02/23 Appointment Alayna Kauffman, STEVEN [facility] [place] Showing future appointments within next 90 days and meeting all other requirements Passed - No active on record levothyroxine (SYNTHROID) 175 MCG Tablet [Pharmacy Med Name: Levothyroxine Sodium 175 MCG Oral Tablet] 90 Tablet 0 Sig: Take 1 tablet by mouth once daily Thyroid Hormones Protocol Failed - 08/08/2023 10:40 AM Failed - Normal TSH in past 12 months TSH Date Value Ref Range Status 01/20/2022 0.653 0.270 - 4.200 mIU/L Final Passed - No test in the past 12 months or most recent test was negative Passed - Visit with relevant provider in past 12 months or upcoming 90 days Recent Visits Date Type Provider Dept 08/04/23 Office Visit Alayna Kauffman PAC [facility] [place] Showing recent visits within past 365 days and meeting all other requirements Future Appointments Date Type Provider Dept 09/02/23 Appointment Alayna Kauffman PAC [facility] [place] Showing future appointments within next 90 days and meeting all other requirements Passed - No active on record documented in this encounter Plan of Treatment Upcoming Encounters Date Type Department Care Team (Late st Contact Info) Description 06/13/2024 8:15 AM CDT Office Visit [facility] - Internal Medicine - [place] [address] [place] [address] Alayna Kauffman PAC [address] [place] [address] 06/26/2024 11:30 AM CDT Office Visit [facility] - Cardiology - [place] [address] [place] [address] Mayelin Wang APRN, CNC GRINDER [address] [facility], [address] [place] [address] documented as of this encounter Visit Diagnoses Diagnosis H/O thyroidectomy Other postprocedural status documented in this encounter Additional Health Concerns Assessment Noted Time PHQ-9 Depression Total Score: 0 08/04/19 24 9:36 AM CDT documented as of this encounter Care Teams General Road Foreman Relationship Specialty Start Date End Date Alayna Kauffman PAC [address] [place] [address] PCP - General Physician Associate Professor Physician 11/06/20 Rajesh Parsons MD [address] [place] [address] Consulting Physician Cardiovascular Disease - Cardiology 03/04/22 02/12/24 Mayelin Wang APRN, CNC GRINDER [address] [facility], [address] [place] [address] Nurse Practitioner Cardiology 11/04/23 documented as of this encounter
--- OUTSIDE RECORDS SUMMARY | 2024-04-23 14:31 | XMS_ITS | Encounter Summary ---
Author Organization [facility] Address [address] [place] [address] Phone Care Team Providers Care Can Operator Name Role Phone JamariAlayna mariee PAC Primary Care Pro vider Rajesh Parsons MD Unavailable Mayelin Werner HOURLY MANAGER, TRUST MANAGER ASSISTANT Unavailable +1- [phone] Reason for Visit * Reason Comments Medication Refill Encounter Details Date Type Department Care Team (Late st Contact Info) Description 07/10/2023 Refill [facility] - [place] [address] [place] [address] Mansoor Garcia MD [address] [facility] [place] [address] Medication Refill Social History Tobacco [...] Telephone Encounter - Mayelin Conn RN - 07/11/2023 9:32 AM CDT Medication failed the protocol, provider to review and approve the medication order if appropriate. Requested Prescriptions Pending Prescriptions Disp Refills pantoprazole (PROTONIX) 40 MG Tablet Delayed Response [Pharmacy Med Name: Pantoprazole Sodium 40 MGOral Tablet Delayed Release] 30 Tablet 0 Sig: Take 1 tablet by mouth once daily Proton Pump Inhibitors Protocol Failed - 07/10/2023 9:55 AM Failed - Visit with relevant provider [...] [facility] - [place] [address] [facility] [place] [address] Alayna Kauffman PAC [address] [place] [address] 06/26/2024 11:30 AM CDT Office Visit [facility] Cardiology - [place] [address] [place] [address] Mayelin Wang APRN, TRUST MANAGER ASSISTANT #2 [facility], [address] [place] [address] documented as of this encounter Visit Diagnoses Not on filedocumented in this encounter Additional Health Concerns Assessment Noted Time PHQ-9 Depression Total Score: 4 11/07/19 21 10:00 AM CDT documented as of this encounter Care Teams Can Operator Relationship Specialty Start Date End Date Alayna Kauffman PAC [address] [place] [address] PCP - General Physician Hardwood Faller 11/06/20 Rajesh Parsons MD [address] [place] [address] Consulting Physician Cardiovascular Disease - Cardiology 03/04/22 02/12/24 Mayelin Wang APRN, TRUST MANAGER ASSISTANT #2 [facility], [address] [place] [address] Nurse Practitioner Cardiology 11/04/23 documented as of this encounter
--- OUTSIDE RECORDS SUMMARY | 2024-04-23 14:31 | XMS_ITS | Encounter Summary ---
Author Organization [facility] Address [address] [place] [address] Phone Care Team Providers Care Scoop Machine Operator Name Role Phone Jamari Alayna Chewelle PAC Primary Care Pro vider Rajesh Parsons MD Unavailable Mayelin Werner AIRPLANE DISPATCHER, SHOPPING INSPECTOR Unavailable [phone]- [phone] Reason for Visit * Reason Comments Medication Refill Encounter Details Date Type Department Care Team (Late st Contact Info) Description 08/08/2023 Refill [facility] - Internal Medicine - [place] [address] [place] [address] Mansoor Garcia MD [address] [place] [address] Medication Refill Social History Tobacco Use Types Packs/Day Years Used Date Smoking Tobacco: Every Day Cigarettes Smokeless Tobacco: Never Comments:Less than a pack a day Alcohol Use Standard Drinks/Week Comments Not Currently 0 (1 standard drink = 0.6 oz pur e alcohol) [facility] Utilities Answer Date Recorded In the past [...] often do you attend chur ch or jain services? More than 4 times per year 08/04/2023 Do you belong to any clubs o r organizations such as rastafarian groups, unions, fraternal or athletic groups, or [...] Total Score - Questions 1-9 0 07/07 [facility] - Occupational [...] place to sleep or slept in a fci (including now)? No 08/04/2023 Comments No Sex and Gender Information Value Date Recorded Sex Assigned at Not on file Legal Sex Female 11:52 PM CDT Gender Identity Not on file Sexual Orientation Not on file documented as of this encounter Miscellaneous Notes * Telephone Encounter - Mayelin Conn RN - 08/08/2023 9:34 AM CDT Medication failed the protocol, provider to review and approve the medication order if appropriate. Requested Prescriptions Pending Prescriptions Disp Refills atorvastatin (LIPITOR) 40 MG Tablet [Pharmacy Med Name: Atorvastatin Calcium 40 MG Oral Tablet] 30 Tablet 0 Sig: Take 1 tablet by mouth once daily Hmg CoA Reductase Inhibitors Protocol Failed - 08/08/2023 6:52 AM Failed - Lipid panel in past 12 [...] Dept 08/04/23 Office Visit Alayna Kauffman, STEVEN [place] Showing recent visits within past 365 days and meeting all other requirements Future Appointments Date Type Provider Dept 09/02/23 Appointment Alayna Kauffman, STEVEN [place] Showing future appointments within next 90 days and meeting all other requirements Passed - No active on record documented in this encounter Plan of Treatment Upcoming Encounters Date Type Department Care Team (Late st Contact Info) Description 06/13/2024 8:15 AM CDT Office Visit [facility] - Internal Medicine [facility] [address] [place] [address] Alayna Kauffman, PAC [address] [place] [address] 06/26/2024 11:30 AM CDT [facility] Visit [facility] - Cardiology - [place] [address] [place] [address] Mayelin Wang APRN, SHOPPING INSPECTOR #2 [facility], [facility] [address] [place] [address] documented as of this encounter Visit Diagnoses Not on filedocumented in this encounter Additional Health Concerns Assessment Noted Time PHQ-9 Depression Total Score: 0 08/04/19 9:36 AM CDT documented as of this encounter Care Teams Scoop Machine Operator Relationship Specialty Start Date End Date Alayna Kauffman, STEVEN [address] [place] [address] PCP - General Physician Customer Quality Specialist 11/06/20 Rajesh Parsons MD [address] [place] [address] Consulting Physician Cardiovascular Disease - Cardiology 03/04/22 02/12/24 Mayelin Wang APRN, SHOPPING INSPECTOR #2 [facility], [address] [place] [address] Nurse Practitioner Cardiology 11/04/23 documented as of this encounter
--- OUTSIDE RECORDS SUMMARY | 2024-04-23 14:31 | XMS_ITS | Clinical Summary ---
Author Organization [facility] [address] Address [address] [place] [address] Care Team Providers Care Master Tax Advisor Name Role Phone Alayna Kauffman Primary Care Prov ider Allergies Active Allergy Reactions Criticality Noted Date [...] 03/30/2021 Assessment & Plan (03/30/2021 11:47 AM DEMURRAGE AGENT): Zpak with a meal daily Flonase 2 [...] 03/30/2021 Assessment & Plan (03/30/2021 11:48 AM DEMURRAGE AGENT): Have Dental evaluation Bilateral impacted cerumen 03/30/2021 Assessment & Plan (03/30/2021 11:48 AM DEMURRAGE AGENT): Avoid ear cleaning techniques Avoid water to ears Hyperlipidemia 12/25/2020 Assessment & Plan (01/31/2024 2:15 PM DEMURRAGE AGENT): Impression: Chronic and stable. Plan: Continue atorvastatin. Bilateral carotid artery stenosis 11/13/2020 Assessment & Plan (01/31/2024 2:13 PM DEMURRAGE AGENT): Impression: Moderate stenosis noted to left internal carotid artery and patent right internal carotid artery seen on recent duplex scan. Patient remains asymptomatic. Plan: Patient was seen and evaluated with Dr. Neal - Continue ongoing risk factor modifications. -Patient to follow-up in 1 year for re-evaluation with repeat carotid duplex. Assessment & Plan (02/09/2022 4:06 PM DEMURRAGE AGENT): Bilateral moderate carotid stenosis that is stable. [...] 06/08/2017 Assessment & Plan (01/31/2024 2:15 PM DEMURRAGE AGENT): Impression: Chronic and stable. Plan: Continue amlodipine, hydralazine, irbesartan, metoprolol Assessment & Plan (08/04/2021 2:37 PM CDT): Stable hypertension being controlled with blood pressure medication. Continue taking medications as per PCP. Lipid screening 06/08/2017 MARYSOL-inhibitor cough 06/08/2017 Subclavian artery stenosis, right (CMS/HCC) 06/2017 Assessment & Plan (01/31/2024 2:15 PM DEMURRAGE AGENT): Impression: History of right subclavian artery stenosis. [...] Doppler. Assessment & Plan (02/09/2022 4:05 PM DEMURRAGE AGENT): History of right subclavian artery stenosis. States [...] 06/08/2017 Assessment & Plan (01/31/2024 2:18 PM DEMURRAGE AGENT): Impression: Patient is a current everyday smoker smoking 3 cigarettes daily. Plan: Discussed with the patient greater than 3 minutes about the importance of smoking cessation and its benefits to the cardiovascular health. Patient reports working on quitting completely with the hopes of completely quitting by Rosy. Assessment & Plan (02/09/2022 4:04 PM DEMURRAGE AGENT): Patient with history of tobacco abuse who [...] cardiovascular health. Patient understands importance of cessation. Encounters Date Type Department Care Team Description 02/01/2024 Orders Only [facility] and Ve[facility] Surgery [address] [place] [address] [place] [phone] Aries Neal MD Bilateral carotid artery stenosis (Primary Dx); Subclavian artery stenosis, right (CMS/HCC) (HCC) 01/31/2024 9:00 AM DEMURRAGE AGENT Office Visit [facility] Vein Surgery [address] [place] [address] [place] [phone] Ginger Guerin NP Bilateral carotid artery stenosis (Primary Dx); Subclavian artery stenosis, right (CMS/HCC) (HCC); Essential hypertension; Mixed hyperlipidemia; Tobacco abuse 01/31/2024 7:57 AM DEMURRAGE AGENT - 01/31/2024 11:59 PM DEMURRAGE AGENT Hospital Encounter [facility] Office Building [address] [place] [address] Subclavian artery stenosis, right (CMS/HCC) ([facility]) Discharge Disposition: Discharge to home or self care 01/31/2024 7:57 AM DEMURRAGE AGENT - 01/31/2024 11:59 PM DEMURRAGE AGENT Hospital Encounter [facility] [address] [place] [address] Bilateral carotid artery occlusion Discharge Disposition: Discharge to home or self care from Last 3 Months Immunizations Immunization Administration Dates Next Due Influenza, Quadrivalent, Joy l Culture-based MDCK, Antibiotic Free, Intramuscular 12/23/2018,12/14/2018 Influenza, Quadrivalent, Spl it, Preservative Free, Intramuscular 02/01/2018 Tetanus toxoid, adsorbed 03/07/2008 Surgical History Surgery Date Site/Laterality Comments TUBAL LIGATION Bilateral tubal ligation OTHER SURGICAL HISTORY D&C CARPAL TUNNEL RELEASE TONSILLECTOMY DILATION AND CURETTAGE OF UTERUS TYMPANOSTOMY TUBE PLACEMENT OTHER SURGICAL HISTORY 08/05/2017 - 09/03/2017 right arm arterial balloon Medical History Medical History Date Comments Hx Other Medical ear tubes Hx Other Medical 2011 Colonic polyps Calculus of kidney 1996 kidney stones Hypertension Thyroid disease Cancer (CMS/HCC) ([facility]) Sleep apnea Arthritis History of kidney stones Multinodular goiter Paroxysmal A-fib (CMS/HCC) (HCC) Subclavian artery stenosis ( [facility]/HCC) ([facility]) CT chest with 70% L sublclav willie stenosis vs artifact per Radiology at [place] Family History Medical History Relation Name Comments Alcohol abuse Father Alcoholism; Alzheimer's disease Father Other Father Alive and well; /carotoid blockage; Hypertension Mother Hypertension; Other Mother Alive and well; Anesthesia problems Neg Hx Relation Name Status Comments Father Alive Mother Alive Social History Tobacco Use Types Packs/Day [...] on file Legal Sex Female 12:24 AM DEMURRAGE AGENT Gender Identity Not on file Sexual Orientation Not on file Obstetrics History Last Filed Vital Signs Vital Sign Reading Time Taken Comments Blood Pressure 133/54 01/31/2024 9:29 AM DEMURRAGE AGENT Pulse 60 01/31/2024 9:29 AM DEMURRAGE AGENT Temperature 36.4 C (97.5 F) 07/28/2023 9:34 AM CDT Respiratory Rate 18 07/28/2023 9:34 AM CDT Oxygen Saturation 100% 07/28/2023 9:34 AM CDT Inhaled Oxygen Concentration - - Weight 99.8 kg (220 lb) 01/31/2024 9:29 AM DEMURRAGE AGENT Height 160 cm (5' 3 ) 01/31/2024 9:29 AM DEMURRAGE AGENT Body Mass Index 38.97 01/31/2024 9:29 AM DEMURRAGE AGENT Plan of Treatment Health Maintenance Due Date Last Done Comments Breast Cancer Screening-Mammogram 1968 Cervical Cancer Screening 1968 Colon Cancer Screening-Colonoscopy 1968 Depression Screening 1968 Hepatitis C Screening 1968 Hepatitis B Screening 01/25/1986 Regular Well Visit/Exam 18-64 01/25/1986 Pneumococcal vaccine <65 (1 of 2 - PCV) 01/25/1987 DTaP/Tdap/Td Vaccine (1 - Tdap) 03/08/2008 9 Lung Cancer Screening 01/25/2018 Zoster Vaccine (1 of 2) 01/25/2018 Influenza Vaccine (#1) 2023 9, 12/14/2018, 02/01/2018 Procedures Procedure Name Priority Date/Time Associated Diagnosis Comments US CAROTIDS DUPLEX BILATERAL Schedule Routine, Read Routine (OP Routine) 01/31/2024 9:25 AM DEMURRAGE AGENT Bilateral carotid artery occlusion US ARTERIAL DOPPLER UPPER EXTREMITY BILATERAL Schedule Routine, Read Routine (OP Routine) 01/31/2024 9:24 AM DEMURRAGE AGENT Subclavian artery stenosis, right (CMS/HCC) (HCC) from Last 3 Months Results * US Carotids Duplex Bilateral (01/31/2024 9:25 AM DEMURRAGE AGENT) Anatomical Region Laterality Modality Vascular Bilateral Ultrasound 01/31/2024 Narrative 02/01/2024 5:53 PM DEMURRAGE AGENT Poachable Job ID: [id number] Amphion Document ID: [id number] Dictated date/time: [id number] REASON FOR STUDY Right subclavian stenosis. Right [...] 69% in diameter. Job ID/Internal Job ID: [id number] Aries Neal MD [facility] US PROCEDURES Final Res ult * US Arterial Doppler Upper Extremity Bilateral (01/31/2024 9:24 AM DEMURRAGE AGENT) Anatomical Region Laterality Modality Vascular Bilateral Ultrasound 01/31/2024 Narrative 02/01/2024 5:53 PM DEMURRAGE AGENT Path [employer] Job ID: [id number] Path [employer] Document ID: [id number] Dictated date/time: [id number] BILATERAL UPPER EXTREMITY DUPLEX STUDY REASON FOR [...] significant distal ischemia. Job ID/Internal Job ID: [id number] Aries Neal MD [facility] PROCEDURES Final Res ult from Last 3 Months Insurance BLUE [employer]ESS [employer] CHOICE [facility] [facility] H[facility]/PPO Address: [address] [address] [place] [address] [employer] Advance Directives For more information, please contact: [phone] * Full Code (Latest Code Status on File) Date Activated Date Inactivated Comments 11/04/2020 5:40 AM 11/04/2020 4:42 PM * Full Code Date Activated Date Inactivated Comments 04/05/2018 12:01 AM 04/05/2018 6:57 PM Care Teams Master Tax Advisor Relationship Specialty Start Date End Date Alayna Kauffman PA PCP - General Neurosurgery 11/13/20
--- OUTSIDE RECORDS SUMMARY | 2024-04-23 14:31 | XMS_ITS | Encounter Summary ---
Author Organization [facility] Address [address] [place] [address] Phone Care Team Providers Care Sociocultural Anthropology Professor Name Role Phone Alayna Kauffman PAC Primary Care Pro vider Rajesh Parsons MD Unavailable Mayelin Werner CLAY DIGGER, METAL SHEET ROLLER OPERATOR Unavailable [phone]- [phone] Reason for Visit * Reason Comments Medication Refill Encounter Details Date Type Department Care Team (Late st Contact Info) Description 05/13/2023 Refill [facility] Medicine - [place] [address] [place] [address] Alayna Kauffman, PAC [address] [place] [address] Medication Refill Social History Tobacco [...] Telephone Encounter - Mayelin Conn RN - 05/13/2023 2:48 PM CST Medication failed the protocol, provider to review and approve the medication order if appropriate. Requested Prescriptions Pending Prescriptions Disp Refills levothyroxine (SYNTHROID) 175 MCG Tablet [Pharmacy Med Name: Levothyroxine Sodium 175 MCG Oral Tablet] 90 Tablet 0 Sig: Take 1 tablet by mouth once daily Thyroid Hormones Protocol Failed - 05/13/2023 12:45 PM Failed - Visit with relevant provider in past 12 months or upcoming 90 days Recent Visits No visits were found meeting these conditions. Showing recent visits within past 365 days and meeting all other requirements Future Appointments No visits were found meeting these conditions. Showing future appointments within next 90 days and meeting all other requirements Failed - Normal TSH in past 12 months TSH Date Value Ref Range Status 01/20/2022 0.653 0.270 - 4.200 mIU/L Final Passed - No test in the past 12 months or most recent test was negative Passed - No active on record ER TECHNICIAN documented in this encounter Plan of Treatment Upcoming Encounters Date Type Department Care Team (Late st Contact Info) Description 06/13/2024 8:15 AM CDT Office Visit [facility] - Internal Medicine - [place] [address] [place] [address] Alayna Kauffman, [facility] [address] [place] [address] 06/26/2024 11:30 AM CDT Office Visit [facility] - Cardiology - [place] [address] [place] [address] Mayelin Wang APRN, METAL SHEET ROLLER OPERATOR #2 [facility], [address] [place] [address] documented as of this encounter Visit Diagnoses Diagnosis H/O thyroidectomy Other postprocedural status documented in this encounter Additional Health Concerns Assessment Noted Time PHQ-9 Depression Total Score: 4 11/07/19 21 10:00 AM CDT documented as of this encounter Care Teams Sociocultural Anthropology Professor Relationship Specialty Start Date End Date Alayna Kauffman, STEVEN [address] [place] [address] PCP - General Physician Wax Blender 11/06/20 Rajesh Parsons MD [address] [place] [address] Consulting Physician Cardiovascular Disease - Cardiology 03/04/22 02/12/24 Mayelin Wang, CLAY DIGGER, METAL SHEET ROLLER OPERATOR #2 [facility], [address] [place] [address] Nurse Practitioner Cardiology 11/04/23 documented as of this encounter
--- OUTSIDE RECORDS SUMMARY | 2024-04-23 14:31 | XMS_ITS | Encounter Summary ---
Author Organization [facility] Address [address] [place] [address] Phone Care Team Providers Care Shampoo Person Name Role Phone Alayna Kauffman PAC Primary Care Pro vider Rajesh Parsons MD Unavailable Mayelin Werner SURVEY STATISTICIAN, MANAGER MARKETING Unavailable [phone]- [phone] Reason for Visit * Reason Comments Medication Refill Encounter Details Date Type Department Care Team (Late st Contact Info) Description 03/16/2023 Refill [facility] Internal Medicine - [place] [address] [place] [address] Alayna Kauffman, PAC [address] [place] [address] Medication Refill Social History Tobacco [...] Telephone Encounter - Mayelin Conn RN - 03/16/2023 9:53 AM CST Medication failed the protocol, provider to review and approve the medication order if appropriate. Requested Prescriptions Pending Prescriptions Disp Refills atorvastatin (LIPITOR) 40 MG Tablet [Pharmacy Med Name: Atorvastatin Calcium 40 MG Oral Tablet] 30 Tablet 0 Sig: Take 1 tablet by mouth once daily Hmg CoA Reductase Inhibitors Protocol Failed - 03/16/2023 9:16 AM Failed - Visit with relevant provider [...] negative Passed - No active on record UNTS PAYABLE PROFESSIONAL documented in this encounter Plan of Treatment Upcoming Encounters Date Type Department Care Team (Late st Contact Info) Description 06/13/2024 8:15 AM CDT Office Visit [facility] - Internal Medicine - [place] [address] [place] [address] Alayna Kauffman, PAC [address] [place] [address] 06/26/2024 11:30 AM CDT Office Visit [facility] - Cardiology - [place] [address] [place] [address] Mayelin Wang APRN, MANAGER MARKETING #2 [facility], [address] [place] [address] documented as of this encounter Visit Diagnoses Not on filedocumented in this encounter Additional Health Concerns Assessment Noted Time PHQ-9 Depression Total Score: 4 11/07/19 21 10:00 AM CDT documented as of this encounter Care Teams Shampoo Person Relationship Specialty Start Date End Date Alayna Kauffman, PAC [address] [place] [address] PCP - General Physician Belt Knife Feeder 11/06/20 Rajesh Parsons MD [address] [place] [address] Consulting Physician Cardiovascular Disease - Cardiology 03/04/22 02/12/24 Mayelin Wang APRN, MANAGER MARKETING #[address] [facility], [address] [place] [address] Nurse Practitioner Cardiology 11/04/23 documented as of this encounter
--- OUTSIDE RECORDS SUMMARY | 2024-04-23 14:31 | XMS_ITS | Encounter Summary ---
Author Organization [facility] Address [address] [facility] [address] [address] Phone Care Team Providers Care Enforcement Manager Name Role Phone Alayna Kauffman PAC Primary Care Pro vider Rajesh Parsons MD Unavailable Mayelin Werner RING ATTACHER, CARBON SETTER Unavailable [phone]- [phone] Reason for Visit * Reason Comments Medication Refill Encounter Details Date Type Department Care Team (Late st Contact Info) Description 01/15/2023 Refill [facility] Medicine - [place] [address] [place] [address] Alayna Kauffman, PAC [address] [place] [address] Medication Refill Social History Tobacco [...] Telephone Encounter - Mayelin Conn RN - 01/17/2023 8:39 AM CST Medication failed the protocol, provider to review and approve the medication order if appropriate. Requested Prescriptions Pending Prescriptions Disp Refills atorvastatin (LIPITOR) 40 MG Tablet [Pharmacy Med Name: Atorvastatin Calcium 40 MG Oral Tablet] 30 Tablet 0 Sig: Take 1 tablet by mouth once daily Hmg CoA Reductase Inhibitors Protocol Failed - 01/15/2023 9:27 AM Failed - CMP in past 12 months [...] 01/20/2022 9.8 8.9 - 10.3 mg/dL Final SGOT (AST) Date Value Ref [...] Dept 01/20/22 Office Visit Alayna Kauffman, PAC [facility] [place] Showing recent visits within past 365 days [...] Range Status 01/20/2022 121.6 <130 mg/dL Final ET MASTER documented in this encounter Plan of Treatment Upcoming Encounters Date Type Department Care Team (Late st Contact Info) Description 06/13/2024 8:15 AM CDT Office Visit [facility] - Internal Medicine [place] [address] [place] [address] Alayna Kauffman, STEVEN [address] [place] [address] 06/26/2024 11:30 AM CDT Office Visit [facility] - Cardiology - [place] [address] [place] [address] Mayelin Wang APRN, CARBON SETTER #2 [facility], [address] [place] [address] documented as of this encounter Visit Diagnoses Not on filedocumented in this encounter Additional Health Concerns Infection Onset Date Last Indicated Resolved Time COVID - 19 02/23/2023 02/23/2023 03/05/2023 12:1 6 AM MARKET MASTER Assessment Noted Time PHQ-9 Depression Total Score: 4 11/07/19 21 10:00 AM CDT documented as of this encounter Care Teams Enforcement Manager Relationship Specialty Start Date End Date Alayna Kauffman, PAC [address] [place] [address] PCP - General Physician English Faculty Member 11/06/20 Rajesh Parsons MD [address] [place] [address] Consulting Physician Cardiovascular Disease - Cardiology 03/04/22 02/12/24 Mayelin Wang APRN, CARBON SETTER #2 [facility], [address] [place] [address] Nurse Practitioner Cardiology 11/04/23 documented as of this encounter
--- OUTSIDE RECORDS SUMMARY | 2024-04-23 14:31 | XMS_ITS | Encounter Summary ---
Author Organization [facility] Address [address] [place] [address] Phone Care Team Providers Care Student Services Advisor Name Role Phone Alayna Kauffman PAC Primary Care Pro vider Rajesh Parsons MD Unavailable Mayelin Werner CAD SPECIALIST, LEASES AND LAND SUPERVISOR Unavailable [phone] Reason for Visit * Reason Comments Medication Refill Encounter Details Date Type Department Care Team (Late st Contact Info) Description 03/25/2023 Refill [facility] - Internal Medicine - [place] [address] [place] [address] Alayna Kauffman, PAC [address] [place] [address] Medication Refill Social History Tobacco [...] encounter Miscellaneous Notes * Telephone Encounter - Mayeiln Conn RN - 03/25/2023 10:37 AM CST Medication failed the protocol, provider to review and approve the medication order if appropriate. Requested Prescriptions Pending Prescriptions Disp Refills irbesartan (AVAPRO) 300 MG Tablet [Pharmacy Med Name: Irbesartan 300 MG Oral Tablet] 90 Tablet 0 Sig: Take 1 tablet by mouth once daily ARB Protocol Failed - 03/25/2023 10:29 AM Failed - Serum potassium on record [...] negative Passed - No active on record MILL OPERATOR FACING SAND documented in this encounter Plan of Treatment Upcoming Encounters Date Type Department Care Team (Late st Contact Info) Description 06/13/2024 8:15 AM CDT Office Visit [facility] - Internal Medicine - [place] [address] [place] [id number] Alayna Kauffman, [facility] [address] [place] [address] 06/26/2024 11:30 AM CDT Office Visit [facility] - Cardiology - [place] [address] [place] [address] Mayelin Wang, CAD SPECIALIST, LEASES AND LAND SUPERVISOR [address] [facility], [address] [place] [address] documented as of this encounter Visit Diagnoses Not on filedocumented in this encounter Additional Health Concerns Assessment Noted Time PHQ-9 Depression Total Score: 4 11/07/19 21 10:00 AM CDT documented as of this encounter Care Teams Student Services Advisor Relationship Specialty Start Date End Date Alayna Kauffman PAC [address] [place] [address] PCP - General Physician Child Day Care Teacher 11/06/20 Rajesh Parsons MD [address] [place] [address] Consulting Physician Cardiovascular Disease - Cardiology 03/04/22 02/12/24 Mayelin Wang APRN, LEASES AND LAND SUPERVISOR [address] [facility], [address] [place] [address] Nurse Practitioner Cardiology 11/04/23 documented as of this encounter
--- OUTSIDE RECORDS SUMMARY | 2024-04-23 14:32 | XMS_ITS | Patient Health Summary ---
Author Organization [facility] Address [address] [place] [address] Care Team Providers Care Manufacturing Coordinator Name Role Phone Unavailable Primary Care Provider Unavailabl e Note from [facility] [place],non-owned Affiliates and Associated Physician Practices is amultiple site organization consisting of ambulatory clinics and hospital sitesin [place], [place], [place] and [place]. This disclosure is being madepursuant to the Care Everywhere program and may not contain all information available regarding this patient. Last updated 17.[facility] Social History Tobacco Use Types Packs/Day Years Used Date Smoking Tobacco: Never Assessed Sex and Gender Information Value Date Recorded Sex Assigned at Not on file Gender Identity Not on file Sexual Orientation Not on file Procedures * GROSS + MICRO EXAM(Performed 10/18/1996) * GROSS EXAM PATHOLOGY(Performed 10/17/1996) Results * GROSS + MICRO EXAM (10/18/1996 7:11 AM CDT) Result CASE NUMBER [id number] Comment: ORDERING PHYSICIAN JALEN MARTINEZ SPECIMEN TYPE Placenta Date 10/18/1996 Physician Terrell Gross Description The specimen is received in a container labeled with the patient's name. The specimen consists of a placenta with attached membranes and cord which weighs 300 grams in total. The placental disc measures 23 x 15 cm and up to 2.5 cm in thickness. The membranes are of a translucent pinkish-garcia color and are attached marginally. The umbilical cord has a somewhat eccentric insertion, inserting 3.5 cm from the nearest margin. It measures 44 cm in length and up to 1 cm in thickness, and on cut section 3 vessels are identified. The surface has a glistening bluish-garcia color with the usual vascular arcade without nodules. The maternal surface is a soft deep pinkish-garcia color with a small amount of adherent clotted blood. On serial sectioning, a single 1.5 cm firm bauer infarction is identified. Sections of the cord and membranes along with sections of the and maternal surfaces. They are submitted in 5 cassettes for microscopic examination. BM/lmj Microscopic Exam Sections of umbilical cord and membranes show a normal 3 vessel cord and unremarkable membranes. Sections of the placental disc show mature villi with a focal intervillous thrombus with associated infarction. Diagnosis I. Placenta A. Mature placenta. B. 3 vessel cord. C. 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 Manager Retail Sales bk Pathologist Tray Berry M.D. [place]. 10/19/1996 1500 <1> MISCELLANEOUS SAMPLES / Unknown 10/18/1996 7:11 AM CDT 10/18/1996 7:11 AM CDT Historical Provider LAB - PATHOLOGY/C YTOLOGY ORDERABLES * GROSS EXAM PATHOLOGY (10/17/1996 8:15 AM CDT) Result CASE NUMBER [id number] Comment: ORDERING PHYSICIAN JALEN MARTINEZ SPECIMEN TYPE Stone Date 10/17/1996 Physician Terrell Gross Description Received in a container is a greenish-bauer colored hard stone that measures 0.6 x 0.4 x 0.3 cm. The stone is sent to the lab for stone analysis. CC/lmj Diagnosis I. Stone A. Consistent with nephrolith, chemical analysis pending (gross examination only) Manager Retail Sales brandi Pathologist Tray Berry M.D. [place]. 10/18/1996 1315 <1> MISCELLANEOUS SAMPLES / Unknown 10/17/1996 8:15 AM CDT 10/17/1996 8:15 AM CDT Historical Provider LAB - PATHOLOGY/C YTOLOGY ORDERABLES
--- OUTSIDE RECORDS SUMMARY | 2024-04-23 14:32 | XMS_ITS | Clinical Summary ---
Author Organization [facility] Address [address] [place] [address] Care Team Providers Care Order Entry Technician Name Role Phone Unavailable Primary Care Provider Unavailabl e Source Comments [facility] [employer],non-owned Affiliates and Associated Physician Practices is amultiple site organization consisting of ambulatory clinics and hospital sitesin [place], [place], [place] and [place]. This disclosure is being madepursuant to the Care Everywhere program and may not contain all information available regarding this patient. Last updated 17.[facility] [employer] Social History Tobacco Use Types Packs/Day Years Used Date Smoking Tobacco: Never Assessed Sex and Gender Information Value Date Recorded Sex Assigned at Not on file Gender Identity Not on file Sexual Orientation Not on file Plan of Treatment Health Maintenance Due Date Last Done Comments COLOGUARD (AGES 45-75) - COL ON CA SCREENING 1968 COLON MONITORING 1968 COLONOSCOPY - COLON CA SCREENING 1968 CT COLONOGRAPHY - COLON CA SCREENING 1968 Colorectal Cancer Screening 1968 FIT - COLON CA SCREENING 1968 FLEX SIG - COLON CA SCREENING 1968 LIPID TESTING 1968 MAMMOGRAM 1968 PAP SMEAR 1968 HIV SCREENING 01/25/1983 HEPATITIS C SCREENING 01/21/1986 DTAP/TDAP/TD VACCINES (1 - Tdap) 01/25/1987 HEPATITIS B VACCINE (1 of 3 - 19+ 3-dose series) 01/25/1987 PNEUMOCOCCAL VACCINE 50+ (1 of 1 - PCV) 01/25/2018 ZOSTER VACCINE (1 of 2) 01/25/2018 COVID-19 VACCINE ( - 2023-2 5 season) 2023 INFLUENZA VACCINE (#1) 2023 DEPRESSION SCREENING 03/07/2024 HIB VACCINE Aged Out No longer eligi ble based on patient's age to complete this topic HPV VACCINE Aged Out No longer eligi ble based on patient's age to complete this topic MENINGOCOCCAL (Group B) VACCINE Aged Out No longer eligible based on patient's age to complete this topic MENINGOCOCCAL VACCINE Aged Out No silvia jessica eligible based on patient's age to complete this topic PNEUMOCOCCAL VACCINE Aged Out No long er eligible based on patient's age to complete this topic
--- OUTSIDE RECORDS SUMMARY | 2024-04-23 14:32 | XMS_ITS | Referral Summary ---
Author Organization [facility] Address [address] [place] [address] Care Team Providers Care Visual Journalist Name Role Phone Unavailable Primary Care Provider Unavailabl e Source Comments [facility],non-owned Affiliates and Associated Physician Practices is amultiple site organization consisting of ambulatory clinics and hospital sitesin [place], [place], [place] and [place]. This disclosure is being madepursuant to the Care Everywhere program and may not contain all information available regarding this patient. Last updated 17.[facility] [employer] Social History Tobacco Use Types Packs/Day Years Used Date Smoking Tobacco: Never Assessed Sex and Gender Information Value Date Recorded Sex Assigned at Not on file Gender Identity Not on file Sexual Orientation Not on file Plan of Treatment Not on file
--- OUTSIDE RECORDS SUMMARY | 2024-04-23 14:32 | XMS_ITS | Encounter Summary ---
Author Organization [facility] Address [address] [place] [address] Phone Care Team Providers Care Information Technology Advisor Name Role Phone Alayna Kauffman PAC Primary Care Pro vider Rajesh Parsons MD Unavailable Mayelin Werner WELFARE INTERVIEWER, SKIP OPERATOR Unavailable [phone]- [phone] Reason for Visit * Reason Comments Medication Refill Encounter Details Date Type Department Care Team (Late st Contact Info) Description 08/09/2021 Refill [facility] - Internal Medicine - [place] [address] [place] [address] Alayna Kauffman, PAC [address] [place] [address] Medication Refill Social History Tobacco [...] suspected to have Coronavirus/COVID-19? No / Unsure 08/10/2021 1:44 PM CDT documented as of this encounter Miscellaneous Notes * Telephone Encounter - Ginger Garcia RN - 08/10/2021 7:53 AM CDT Medication failed the protocol, provider to review and approve the medication order if appropriate. Requested Prescriptions Pending Prescriptions Disp Refills varenicline (CHANTIX) 1 MG Tablet [Pharmacy Med Name: Varenicline Tartrate 1 MG Oral Tablet] 60 Tablet 0 Sig: Take 1 tablet by mouth twice daily Not Delegated - Smoking Deterrents Protocol Failed - 08/09/2021 12:54 PM Failed - This refill cannot be delegated Passed - Visit with relevant provider in past 6 months or upcoming 90 days Recent Visits Date Type Provider Dept 06/08/21 Office Visit Alayna Kauffman PAC [facility] 03/09/21 [facility] [place] Showing recent visits within past 182 days and meeting all other requirements Future Appointments No visits were found meeting these conditions. Showing future appointments within next 90 days and meeting all other requirements documented in this encounter Plan of Treatment Upcoming Encounters Date Type Department Care Team (Late st Contact Info) Description 06/13/2024 8:15 AM CDT Office Visit [facility] - Internal Medicine - [place] [address] [place] [id number] Alayna Kauffman, PAC [address] [place] [address] 06/26/2024 11:30 AM CDT Office Visit [facility] - Cardiology - [place] [address] [place] [address] Mayelin Wang APRN, SKIP OPERATOR [address] [facility], [address] [place] [address] documented as of this encounter Visit Diagnoses Not on filedocumented in this encounter Additional Health Concerns Infection Onset Date Last Indicated Resolved Time COVID - 19 12/15/2021 12/15/2021 12/25/2021 12:1 6 AM CDT COVID - 19 02/23/2023 02/23/2023 03/05/2023 12:1 6 AM MARBLE RUBBER Assessment Noted Time PHQ-9 Depression Total Score: 4 11/07/19 21 10:00 AM CDT documented as of this encounter Care Teams Information Technology Advisor Relationship Specialty Start Date End Date Alayna Kauffman PAC [address] [place] [address] PCP - General Physician Recycle Driver 11/06/20 Rajesh Parsons MD [address] [place] [address] Consulting Physician Cardiovascular Disease - Cardiology 03/04/22 02/12/24 Mayelin Wang APRN, SKIP OPERATOR [address] [facility], [address] [place] [address] Nurse Practitioner Cardiology 11/04/23 documented as of this encounter
--- OUTSIDE RECORDS SUMMARY | 2024-04-23 14:32 | XMS_ITS | Clinical Summary ---
Author Organization [facility] Address [address] [address] Phone Care Team Providers Care Registered Nurse Behavioral Health Name Role Phone Alayna Kauffman Primary Care Pro vider Mayelin Wang APRN, RIPENING ROOM HAND Unavailable [phone] Allergies Active Allergy Reactions Criticality Noted Date Comments Hydralazine Nausea 09/05/2023 Oxycodone-Acetaminophen Other (see Comments) makes my hair crawl Medications clopidogrel (PLAVIX) 75 MG Tablet 11/04/19 21 Active aspirin 81 MG Chewable Tablet Take 1 Tablet by mouth daily. 100 Tablet 11/10/19 21 Active nicotine (NICODERM CQ) 14 MG/24HR PATCH 24 HR 1 Patch by Transdermal route nightly. 30 Patch 11/09/19 21 Active amLODIPine (NORVASC) 10 MG Tablet Take 1 tablet by mouth nightly 90 Tablet 06/19/19 22 Active meloxicam (MOBIC) 15 MG Tablet Take 1 Tablet by mouth daily. 90 Tablet 3 08/04/19 24 Active hydroCHLOROthi azide 25 MG Tablet Take 1 Tablet by mouth daily. 90 Tablet 3 09/12/19 24 Active cloNIDine (CATAPRES) 0.1 MG Tablet Take twice a day as needed if blood pressure is 170/90 or higher 90 Tablet 3 09/19/19 24 Active labetalol (NORMODYNE) 100 MG Tablet Take 1 Tablet by mouth 2 times daily. 180 Tablet 3 10/28/19 24 Active irbesartan (AVAPRO) 300 MG Tablet Take 1 Tablet by mouth daily. 90 Tablet 2 11/11/19 24 Active albuterol (ProAir HFA) 108 (90 Base) MCG/ACT Aerosol Solution take 2 Puffs by inhalation every 4 hours as needed for Wheezing. 8.5 g 1 12/29/19 24 Active fluticasone-sa lmeterol (ADVAIR) 250-50 MCG/ACT AEROSOL POWDER, BREATH ACTIVATED take 1 Puff by inhalation in the morning and at bedtime. 60 Each 1 12/29/19 24 Active atorvastatin (LIPITOR) 80 MG Tablet Take 1 Tablet by mouth daily. 90 Tablet 3 02/17/20 24 Active fenofibrate 160 MG Tablet Take 1 Tablet by mouth daily. 90 Tablet 3 02/17/20 24 Active levothyroxine (SYNTHROID) 150 MCG TabletIndicati ons:Hyperthyro idism Take 1 tablet by mouth once daily 90 Tablet 03/26/19 25 Active varenicline (CHANTIX) 1 MG Tablet Take 1 tablet by mouth twice daily 60 Tablet 04/16/19 25 Active pantoprazole (PROTONIX) 40 MG Tablet Delayed Response Take 1 tablet by mouth once daily 30 Tablet 04/16/19 25 Active levothyroxine (SYNTHROID) 150 MCG TabletIndicati ons:Hyperthyro idism Take 1 Tablet by mouth daily. 90 Tablet 12/30/19 24 025 Discontinued varenicline (CHANTIX) 1 MG Tablet Take 1 tablet by mouth twice daily 60 Tablet 03/14/19 25 025 Discontinued pantoprazole (PROTONIX) 40 MG Tablet Delayed Response Take 1 tablet by mouth once daily 30 Tablet 03/14/19 25 025 Discontinued Active Problems Problem Noted Date Diagnosed Date Stenosis of left carotid artery 01/27/2024 Overview (01/27/2024): Referred to vascular Herniated disc, cervical 09/05/2023 DDD (degenerative disc disease), cervical 2023 Neck pain 09/05/2023 Fatty liver 01/21/2022 History of cardiac cath 11/12/2020 Overview (11/12/2020): 8-1 Dr Ace CARDIO following Yearly OV H/O thyroidectomy 11/12/2020 Hypertriglyceridemia 11/12/2020 Cerebrovascular accident (CVA) due to embolism 0 11/08/2020 HAVEN (obstructive sleep apnea) 11/06/2020 Overview (12/29/2023): Referred to PULM Left arm numbness 11/06/2020 Left facial numbness 11/06/2020 NSTEMI (non-ST elevated myocardial infarction) 0 11/06/2020 S/P total thyroidectomy 04/20/2018 Hyperthyroidism 06/08/2017 Overview (11/12/2020): No thyroid Paroxysmal atrial fibrillation 06/08/2017 Subclavian artery stenosis, right 06/08/2017 Tobacco dependence syndrome 06/08/2017 Essential hypertension 06/08/2017 Encounters Date Type Department Care Team Description 04/14/2024 [facility] [address] [place] [id number] Alayna Kauffman, PAC Medication Refill 03/24/2024 [facility]ill [facility] [address] [place] [phone] Alayna Kauffman, PAC Medication Refill 03/14/2024 Refill [facility] [address] [place] [phone] Alayna Kauffman, PAC Medication Refill 02/17/2024 Refill [facility] [address] [place] [phone] Alayna Kauffman, PAC Medication Refill 01/31/2024 Telephone [facility] [address] [place] [phone] Alayna Kauffman, PAC 01/27/2024 11:15 AM PAPER CARRIER Office Visit [facility] [address] [place] [address] Alayna Kauffman, STEVEN Essential hypertension (Primary Dx); Stenosis of left carotid artery; HAVEN (obstructive sleep apnea); Neck pain; Neuropathy Discharge Disposition: Discharged to home or Selfcare 01/24/2024 8:53 AM PAPER CARRIER - 01/24/2024 11:59 PM PAPER CARRIER [facility] [address] [place] [address] Alayna Kauffman, STEVEN Discharge Disposition: Discharged to home or Selfcare 01/24/2024 8:25 AM PAPER CARRIER - 01/24/2024 8:52 AM PAPER CARRIER [facility] [address] [place] [address] Alayna Kauffman, STEVEN Discharge Disposition: Discharged to home or Selfcare 01/24/2024 7:51 AM PAPER CARRIER - 01/24/2024 8:24 AM PAPER CARRIER [facility] Ul[facility] [address] [place] [address] Alayna Kauffman, STEVEN Discharge Disposition: Discharged to home or Selfcare 01/24/2024 Travel from Last 3 Months Immunizations Immunization Administration Dates Next Due Influenza Vaccine, Quadrivalent, PF 02/01/2018 Influenza, Injectable, Mdck, quadrivalent,with Preservative 12/14/2018 Tetanus Vaccine 03/07/2008 Family History Medical History Relation Name Comments Arthritis Mother Hypertension Mother Relation Name Status Comments Father Mother Alive Social History Tobacco Use Types Packs/Day Years Used Date Smoking Tobacco: Every Day Cigarettes Smokeless Tobacco: Never Tobacco Cessation:Ready to Q uit: No; Counseling Given: No Comments:Less than a pack a day Alcohol Use Standard Drinks/Week Comments Not Currently 0 (1 standard drink = 0.6 oz pur e alcohol) [facility] Utilities Answer Date Recorded In the past 12 months has [employer] gas, oil, or water company threatened to shut off services in your home? No 09/05/2023 Social Connection and Isolat ion Panel [NHANES] Answer Date Recorded In a typical week, how many times do you talk on the phone with family, friends, or neighbors? More than three times a week 09/05/2023 How often do you get togethe r with friends or relatives? Never 09/05/2023 How often do you attend chur ch or gnosticist services? More than 4 times per year 09/05/2023 Do you belong to any clubs o r organizations such as moravian groups, unions, fraternal or athletic groups, or school groups? No 09/05/2023 How often do you attend meet ings of the clubs or organizations you belong to? Never 09/05/2023 Are you , , di vorced, , never , or living with a partner? 09/05/2023 AUDIT-C Answer Date Recorded Q1: How often do you have a drink containing alc ohol? Monthly or less 09/05/2023 Q2: How many drinks containi ng alcohol do you have on a typical day when you are drinking? 1 or 2 09/05/2023 Q3: How often do you have si x or more drinks on one occasion? Never 09/05/2023 Overall Financial Resource Strain (CARDIA) Answe r Date Recorded How hard is it for you to pa y for the very basics like food, housing, medical care, and heating? Somewhat hard 09/05/2023 PHQ-2 Answer Date Recorded Total Score - Questions 1-9 0 07/07 [facility] - Occupational Stress Questionnaire Answer Date Recorded Do you feel stress - tense, restless, nervous, or anxious, or unable to sleep at night because your mind is troubled all the time - these days? To some extent 09/05/2023 Exercise Vital Sign Answer Date Recorde d On average, how many days pe r week do you engage in moderate to strenuous exercise (like a brisk walk)? 5 days 09/05/2023 On average, how many minutes do you engage in exercise at this level? 60 min 09/05/2023 Hunger Vital Sign Answer Date Recorded Within the past 12 months, y ou worried that your food would run out before you got the money to buy more. Never true 09/05/19 24 Within the past 12 months, t he food you bought just didn't last and you didn't have money to get more. Never true 09/05/2023 PRAPARE - Transportation Answer Date Re corded In the past 12 months, has l ack of transportation kept you from medical appointments or from getting medications? No 03/2023 In the past 12 months, has l ack of transportation kept you from meetings, work, or from getting things needed for daily living? No 09/05/2023 Housing Stability Vital Sign Answer Ryan e [...] place to sleep or slept in a jail (including now)? No 08/04/2023 Housing Stability Vital Sign Answer Ryan e Recorded In the last 12 months, was t here a time when you were not able to pay the mortgage or rent on time? No 09/05/2023 Number of Times Moved in the Last Year Not on fi le 09/05/2023 At any time in the past 12 m [facility], were you homeless or living in a jail (including now)? No 09/05/2023 Sexually Active Control Partners Comments Not Currently Comments No Sex and Gender Information Value Date Recorded Sex Assigned at Not on file Legal Sex Female 11:52 PM CDT Gender Identity Not on file Sexual Orientation Not on file Last Filed Vital Signs Vital Sign Reading Time Taken Comments Blood Pressure 130/60 01/27/2024 11:04 AM PAPER CARRIER Pulse 85 01/27/2024 11:04 AM PAPER CARRIER Temperature 36.5 C (97.7 F) 01/27/2024 11:04 AM PAPER CARRIER Respiratory Rate 12 01/27/2024 11:04 AM PAPER CARRIER Oxygen Saturation 93% 01/27/2024 11:04 AM PAPER CARRIER Inhaled Oxygen Concentration - - Weight 102.1 kg (225 lb) 01/27/2024 11:04 AM PAPER CARRIER Height 160 cm (5' 3 ) 12/26/2023 4:07 PM CDT Body Mass Index 39.86 12/26/2023 4:07 PM CDT Plan of Treatment Upcoming Encounters Date Type Department Care Team (Late st Contact Info) Description 06/13/2024 8:15 AM CDT [facility] [address] [place] [phone] Alayna Kauffman, PAC [address] [place] [address] 06/26/2024 11:30 AM CDT [facility] [place] [address] [place] [address] Mayelin Wang APRN, RIPENING ROOM HAND [address] [facility] [place] [address] Health Maintenance Due Date Last Done Comments Hepatitis C Virus (HCV) Screening 1970 Pneumococcal Immunization (5 0+ years) (1 of 2 - PCV) 01/25/1987 Pap Smear 01/25/1989 Cervical Cancer Screening (CCS) 01/25/1998 HPV/Cotest 01/25/1998 Colonoscopy 01/25/2013 Colorectal Cancer Screening 01/25/2013 Cologuard 01/25/2018 Immunochemical Fecal Occult Blood 01/25/2018 Mammogram 01/25/2018 Zoster Immunization (1 of 2) 01/25/2018 Hepatitis B Immunization (2 of 3 - 19+ 3-dose series) 10/06/2021 09/08/2021 Influenza Immunization (#1) 11/06/202312/05, 02/01/2018 SARS-COV-2 Immunization (3 - 2023- season) 2023 09/25/2021, 09/04/2021 Respiratory Syncytial Virus (RSV) Immunization (Adult) (1 - 1-dose 75+ series) 01/25/2043 DTaP/Tdap/Td Immunization Discontinued 09/08/2021 TdaP Immunization Completed 09/08/2021 Meningococcal Immunization (ACWY) Aged Out No longer eligible based on patient's age to complete this topic Rotavirus Immunization Aged Out No lo nger eligible based on patient's age to complete this topic Medical Devices Implanted Type Area Dinkey Motor Operator Device Identifier Shelf Expiration Date Model / Serial / Lot Device Clsr 70cm 6fr Angio-Seal Vip .035in Vasc Collagen Valuelink Gw Insertion Aissatou Hooks - [id number] Implanted:Qty: 1 on 11/06/2020 by Vicky Ace MD at [facility] IMPLANT Right: Groin [employer] 07/04/2021 [id number] / / [id number] Procedures Procedure Name Priority Date/Time Associated Diagnosis Comments US BILATERAL CAROTID DUPLEX Routine 01/24/2024 10:17 AM PAPER CARRIER Dizziness CT CHEST W/O CONTRAST Routine 01/24/2024 8:35 AM PAPER CARRIER Dyspnea, unspecified type Smoker COMPLETE PFT W + W/O BRONCHODILATOR Routine 01/24/2024 Dyspnea, unspecified type Smoker from Last 3 Months Results * US BILATERAL CAROTID DUPLEX (01/24/2024 10:17 AM PAPER CARRIER) Anatomical Region Laterality Modality vascular Bilateral Ultrasound 01/27/2024 8:55 AM PAPER CARRIER Impressions 01/27/2024 8:58 AM PAPER CARRIER IMPRESSION: Velocities correspond to a less than 50% percent diameter stenosis of the right ICA. Velocities correspond to greater than 70% stenosis of the left ICA, though ICA to CCA ratio corresponds to 50-69% stenosis of the left ICA Antegrade flow in the left vertebral artery with sonographic demonstration of retrograde flow of the right vertebral artery. CTA neck recommended for further evaluation. REFERENCE: Consensus Panel Joaquin-Scale and Doppler US Criteria for Diagnosis of ICA Stenosis. No stenosis: ICA PSV <125*, 0 percent plaque, ICA/CCA PSV Ratio <2.0, ICA EDV <40*. <50 percent stenosis: ICA PSV <125*, <50 percent plaque, ICA/CCA PSV Ratio <2.0, ICA EDV <40*. 50-69 percent stenosis: ICA PSV 125-230*, >=50 percent plaque, ICA/CCA PSV Ratio 2.0-4.0, ICA EDV 40-100*. >=70 percent but less than near occlusion >230, >=50 percent plaque, ICA/CAA PSV Ratio >4.0, ICA EDV >100*. *cm/sec Plaque estimate (diameter reduction) with joaquin-scale and color Doppler US. RSNA 2003 Narrative 01/27/2024 8:58 AM PAPER CARRIER EXAM DESCRIPTION: US BILATERAL CAROTID DUPLEX REASON FOR STUDY: Chronic dizziness and muscle spasms of the left neck for 1 month. TECHNIQUE: Joaquin scale, color Doppler and spectral Doppler imaging were performed. Velocity criteria are extrapolated from diameter as defined by the Society of Radiologists in Ultrasound Consensus Conference. All velocity measurements are in cm/sec. COMPARISON: Relevant portions of MRI cervical spine without contrast 08/31/2023; CTA head/neck without and with contrast 11/07/2020 FINDINGS: Right: Mild intimal thickening and plaque are seen. Distal CCA Peak Systolic Velocity: 130 Distal CCA End Diastolic Velocity: 12 Peak ICA Systolic Velocity: 154 ICA End Diastolic Velocity: 40 Peak ICA/CCA Systolic Ratio: 1.18 Right Vertebral Artery: Sonographic demonstration of retrograde flow of the right vertebral artery. Left: Mild intimal thickening and plaque are seen. Distal CCA Peak Systolic Velocity: 102 Distal CCA End Diastolic Velocity: 16 Peak ICA Systolic Velocity: 243 ICA End Diastolic Velocity: 42 Peak ICA/CCA Systolic Ratio: 2.38 Left Vertebral Artery: Antegrade direction of flow. THIS IS AN ELECTRONICALLY VERIFIED FINAL REPORT 01/27/2024 8:55 AM - Electronically signed by Harman Wick M.D. NEGRITA: NEGRITA Report ID: [id number] Reading Location: [place] [address] Procedure Note Harman Wick MD - 01/27/2024 EXAM DESCRIPTION: US BILATERAL CAROTID DUPLEX REASON FOR STUDY: Chronic dizziness and muscle spasms of the left neck for 1 month. TECHNIQUE: Joaquin scale, color Doppler and spectral Doppler imaging were performed. Velocity criteria are extrapolated from diameter as defined by the Society of Radiologists in Ultrasound Consensus Conference. All velocity measurements are in cm/sec. COMPARISON: Relevant portions of MRI cervical spine without contrast 08/31/2023; CTA head/neck without and with contrast 11/07/2020 FINDINGS: Right: Mild intimal thickening and plaque are seen. Distal CCA Peak Systolic Velocity: 130 Distal CCA End Diastolic Velocity: 12 Peak ICA Systolic Velocity: 154 ICA End Diastolic Velocity: 40 Peak ICA/CCA Systolic Ratio: 1.18 Right Vertebral Artery: Sonographic demonstration of retrograde flow of the right vertebral artery. Left: Mild intimal thickening and plaque are seen. Distal CCA Peak Systolic Velocity: 102 Distal CCA End Diastolic Velocity: 16 Peak ICA Systolic Velocity: 243 ICA End Diastolic Velocity: 42 Peak ICA/CCA Systolic Ratio: 2.38 Left Vertebral Artery: Antegrade direction of flow. THIS IS AN ELECTRONICALLY VERIFIED FINAL REPORT 01/27/2024 8:55 AM - Electronically signed by Harman Wick M.D. NEGRITA: NEGRITA Report ID: [id number] Reading Location: [id number] IMPRESSION: Velocities correspond to a less than 50% percent diameter stenosis of the right ICA. Velocities correspond to greater than 70% stenosis of the left ICA, though ICA to CCA ratio corresponds to 50-69% stenosis of the left ICA Antegrade flow in the left vertebral artery with sonographic demonstration of retrograde flow of the right vertebral artery. CTA neck recommended for further evaluation. REFERENCE: Consensus Panel Joaquin-Scale and Doppler US Criteria for Diagnosis of ICA Stenosis. No stenosis: ICA PSV <125*, 0 percent plaque, ICA/CCA PSV Ratio <2.0, ICA EDV <40*. <50 percent stenosis: ICA PSV <125*, <50 percent plaque, ICA/CCA PSV Ratio <2.0, ICA EDV <40*. 50-69 percent stenosis: ICA PSV 125-230*, >=50 percent plaque, ICA/CCA PSV Ratio 2.0-4.0, ICA EDV 40-100*. >=70 percent but less than near occlusion >230, >=50 percent plaque, ICA/CAA PSV Ratio >4.0, ICA EDV >100*. *cm/sec Plaque estimate (diameter reduction) with joaquin-scale and color Doppler US. RSNA 2003 us Alayna Kauffman PAC IMG US ORDERABLES Final Result * CT CHEST W/O CONTRAST (01/24/2024 8:35 AM PAPER CARRIER) Anatomical Region Laterality Modality Chest N/A Computed Tomogra phy 01/29/2024 11:0 6 PM PAPER CARRIER Impressions 01/29/2024 11:08 PM PAPER CARRIER IMPRESSION: Mild centrilobular pulmonary emphysema. Scattered ground-glass airspace opacities which may indicate atypical pneumonitis however Fleischner criteria recommends chest CT follow-up without contrast in 3-6 months. See recommendations below. Few small pulmonary nodules in the right upper lung field. Linear bandlike area of fibrosis and or atelectasis in the left upper lung field. Severe coronary artery calcification. Postop changes of thyroidectomy. Recent guidelines by the Fleischner Society (Radiology 286469,2017) divides patient into low vs. high risk (for example, patients who smoke are considered high risk) and provides followup recommendations as follows: SOLITARY PURE GROUND-GLASS NODULE: Patients with a solitary pure ground-glass nodule less than 6 mm do not require follow-up. Larger than 6 mm solitary pure ground-glass nodule require CT in 6 to 12 months to confirm persistence, followed with CT every 2 years until 5 years. If grows or increasingly solid, consider resection. MULTIPLE PURE GROUND-GLASS NODULES: Patients with Multiple pure ground-glass nodules less than [address] in 3 to 6 months. If unchanged, consider CT in 2 and 4 years. Larger than 6 mm Multiple pure ground-glass nodules require CT at 3 to 6 months. The management based on most suspicious nodule(s). Note: These recommendations do not apply to lung cancer screening, patients with immunosuppression, or patients with known primary cancer. http://pubs.rsna.org/doi/pdf/10.1148/radiol.4972842660 Narrative 01/29/2024 11:08 PM PAPER CARRIER EXAM DESCRIPTION: CT CHEST W/O CONTRAST REASON FOR STUDY: c/o dyspnea, chronic SOB, x 3 months. HX of heart attack disease. TECHNIQUE: CT scan of the chest performed without intravenous contrast using helical scanning technique. Reconstructed coronal and sagittal MPR images reviewed. All images stored on PACS. Automated exposure control was used as a dose optimization technique for this examination. COMPARISON: Comparison chest x-ray 11/06/2020. FINDINGS: The sensitivity for detection of solid visceral lesions is diminished without the use of intravenous contrast. LUNGS: There is mild centrilobular pulmonary emphysema. There are scattered ground-glass airspace opacities in the upper lung ram, for example 6 mm axial 28 and numerous scattered subpleural ground-glass opacities which may indicate atypical pneumonitis and or small airways changes. There are several small discrete pulmonary nodules (3.6 mm in the central right upper lung field on axial 25). Mild peribronchial thickening and few scattered thick walled airspace cysts.. There is a linear obliquely oriented bandlike area of fibrosis and or atelectasis in the left upper lung field. Mild linear density in the lingula. PLEURA: No effusion. No pneumothorax. MEDIASTINUM/KG: There are small prevascular and superior mediastinal lymph nodes, largest measuring 6 mm short axis HEART: Heart size is normal. Mild pericardial thickening. CORONARY ARTERY CALCIFICATION: Severe VASCULATURE: No thoracic aortic aneurysm. AXILLA: No adenopathy. CHEST WALL: No masses. No subcutaneous air. HARDWARE/LINES/TUBES: None. UPPER ABDOMEN: No significant abnormality. MUSCULOSKELETAL: No significant abnormality. OTHER: Postop changes of thyroidectomy. THIS IS AN ELECTRONICALLY VERIFIED FINAL REPORT 01/29/2024 11:06 PM - Electronically signed by Perez Warren M.D. LC: DARRIN Report ID: [id number] Reading Location: [id number] Procedure Note Shena Warren MD - 01/29/2024 EXAM DESCRIPTION: CT CHEST W/O CONTRAST REASON FOR STUDY: c/o dyspnea, chronic SOB, x 3 months. HX of heart attack disease. TECHNIQUE: CT scan of the chest performed without intravenous contrast using helical scanning technique. Reconstructed coronal and sagittal MPR images reviewed. All images stored on PACS. Automated exposure control was used as a dose optimization technique for this examination. COMPARISON: Comparison chest x-ray 11/06/2020. FINDINGS: The sensitivity for detection of solid visceral lesions is diminished without the use of intravenous contrast. LUNGS: There is mild centrilobular pulmonary emphysema. There are scattered ground-glass airspace opacities in the upper lung ram, for example 6 mm axial 28 and numerous scattered subpleural ground-glass opacities which may indicate atypical pneumonitis and or small airways changes. There are several small discrete pulmonary nodules (3.6 mm in the central right upper lung field on axial 25). Mild peribronchial thickening and few scattered thick walled airspace cysts.. There is a linear obliquely oriented bandlike area of fibrosis and or atelectasis in the left upper lung field. Mild linear density in the lingula. PLEURA: No effusion. No pneumothorax. MEDIASTINUM/KG: There are small prevascular and superior mediastinal lymph nodes, largest measuring 6 mm short axis HEART: Heart size is normal. Mild pericardial thickening. CORONARY ARTERY CALCIFICATION: Severe VASCULATURE: No thoracic aortic aneurysm. AXILLA: No adenopathy. CHEST WALL: No masses. No subcutaneous air. HARDWARE/LINES/TUBES: None. UPPER ABDOMEN: No significant abnormality. MUSCULOSKELETAL: No significant abnormality. OTHER: Postop changes of thyroidectomy. THIS IS AN ELECTRONICALLY VERIFIED FINAL REPORT 01/29/2024 11:06 PM - Electronically signed by Perez Warren M.D. LC: DARRIN Report ID: [id number] Reading Location: [place] [address] IMPRESSION: Mild centrilobular pulmonary emphysema. Scattered ground-glass airspace opacities which may indicate atypical pneumonitis however Fleischner criteria recommends chest CT follow-up without contrast in 3-6 months. See recommendations below. Few small pulmonary nodules in the right upper lung field. Linear bandlike area of fibrosis and or atelectasis in the left upper lung field. Severe coronary artery calcification. Postop changes of thyroidectomy. Recent guidelines by the Fleischner Society (Radiology 091590,2017) divides patient into low vs. high risk (for example, patients who smoke are considered high risk) and provides followup recommendations as follows: SOLITARY PURE GROUND-GLASS NODULE: Patients with a solitary pure ground-glass nodule less than 6 mm do not require follow-up. Larger than 6 mm solitary pure ground-glass nodule require CT in 6 to 12 months to confirm persistence, followed with CT every 2 years until 5 years. If grows or increasingly solid, consider resection. MULTIPLE PURE GROUND-GLASS NODULES: Patients with Multiple pure ground-glass nodules less than [address] in 3 to 6 months. If unchanged, consider CT in 2 and 4 years. Larger than 6 mm Multiple pure ground-glass nodules require CT at 3 to 6 months. The management based on most suspicious nodule(s). Note: These recommendations do not apply to lung cancer screening, patients with immunosuppression, or patients with known primary cancer. http://pubs.rsna.org/doi/pdf/10.1148/[email or web address] [facility] Final Result * Complete PFT W + W/O Bronchodilator (01/24/2024) FVC 2.87 L FVC %Predicted 97 % FVC Post-Bronchodila tor NA (L) FEV1 2.36 L FEV1 %Predicted 97 % FEV1 Post-Bronchodila tor NA (L) FEV1/FVC 102 % FEF 25-75% 2.64 L/sec TLC 3.54 L TLC %Predicted 74 (Pleth) (L) RV 0.71 L RV %Predicted 39 (Pleth) (L) Airway Resistance 4.33 cmH2O/L/s DLCO 12.93 ml/min/mmH g DLCO %Predicted 57 (ml/min/mm Hg) [facility] PFT ORDERABLES F inal Result from Last 3 Months Insurance [place] GENERIC Advance Directives * Full Code (Latest Code Status on File) Date Activated Date Inactivated Comments 11/06/2020 2:02 PM 11/08/2020 3:27 PM CPR-Full Treat ment: FULL ARREST: Attempt Resuscitation/CPR wit intubation and mechanical ventilation. PRE-ARREST: Use entire range of life support measures to stabilize the patient. Care Teams Registered Nurse Behavioral Health Relationship Specialty Start Date End Date Alayna Kauffman PAC [address] [place] [address] PCP - General Physician International [employer] Manager 11/06/20 Mayelin Wang, HEEL ATTACHER, RIPENING ROOM HAND #2 [facility] [address] [place] [address] Nurse Practitioner Cardiology 11/04/23
== END 2024-04-23 13:30 | disposition home or self-care (01) ==
PROVIDERS: Emergency Provider Registered Nurse; PCP Physician Assistant
DX: J06.9 Acute upper respiratory infection, unspecified (principal); H65.01 Acute serous otitis media, right ear; Z20.822 Contact with and (suspected) exposure to COVID-19; F17.210 Nicotine dependence, cigarettes, uncomplicated; I10 Essential (primary) hypertension; E78.5 Hyperlipidemia, unspecified; I48.91 Unspecified atrial fibrillation
CPT/HCPCS: 87426; 87804; 99213; G0463